=== PATIENT | female | born 1970 | race Caucasian/White ===

== ENCOUNTER → 2016-07-31 | Outpatient (CLI) | payer OTHER, MEDICAID ==
[2016-06-25 11:00] VITALS: BP 114/84
[~2016-07-31] MED LIST: APIX2.5T PO; CEFP200T PO; CONTRAST GIVEN MC PRN; DIAZ5TAB PO; ESTR0.5T PO; HYDR12.53 PO; IBUP200T43 PO; IOHEXOL 300 MG/ML 75 ML VIAL IV ONE; LEVO150T5 PO; LEVO25TA4 PO; LORA0.5T96 PO; ONDA4TAB7 PO; OXYB5TAB7 PO; OXYC-323 PO; OXYC1TAB7 PO; PROM12.553 RC; TRAM-29 PO
--- NOTE | 2016-07-31 14:14 | RAD ---
CT of the head with and without contrast, 07/31/2016: History: Headaches, breast cancer Multidetector imaging was performed prior to and following an IV bolus injection of iodinated contrast material. The ventricles are within normal limits in size. There is no shift of the midline structures. There is no evidence of acute intracranial hemorrhage or mass effect. The postcontrast scans show no areas of abnormal enhancement. IMPRESSION: No significant intracranial abnormality is detected.
== END | disposition home or self-care (01) ==
LOC: CT 08:05
PROVIDERS: ATTEND Surgery
DX: C50.919 Malignant neoplasm of unspecified site of unspecified female breast (principal); R51 Headache; Z90.10 Acquired absence of unspecified breast and nipple
CPT/HCPCS: 70470; Q9967

== ENCOUNTER → 2016-10-27 | Outpatient (CLI) | payer OTHER, MEDICAID ==
[2016-06-25 11:00] VITALS: BP 114/84
[~2016-10-27] MED LIST changes: -CONTRAST GIVEN MC PRN; -IOHEXOL 300 MG/ML 75 ML VIAL IV ONE
== END | disposition home or self-care (01) ==
LOC: LAB 09:42
PROVIDERS: ATTEND Nurse Practitioner Family
DX: R21 Rash and other nonspecific skin eruption (principal)
CPT/HCPCS: 36415; 85610

== ENCOUNTER → 2017-02-08 | Outpatient (CLI) | payer OTHER, MEDICAID ==
[2016-06-25 11:00] VITALS: BP 114/84
[~2017-02-08] MED LIST changes: -TRAM-29 PO; +TRAM-48 PO
[2017-02-08 09:09] LABS: HEMATOCRIT 41.3 % (36.0-47.0); HEMOGLOBIN 14.4 g/dL (12.0-15.5); RED BLOOD COUNT 4.95 x10^6/uL (3.50-5.40); RED CELL DISTRIBUTION WIDTH 14.4 % (11.5-14.5); WHITE BLOOD COUNT 6.4 x10^3/uL (4.0-11.0)
[2017-02-08 09:26] LABS: ALBUMIN 3.8 g/dL (3.4-5.0); ALBUMIN/GLOBULIN RATIO 1.1 (1.0-1.7); CALCIUM 8.5 mg/dL (8.5-10.1); CHOLESTEROL/HDL RATIO 3.7; CREATININE 0.8 mg/dL (0.6-1.0); GFR 77.9; TOTAL BILIRUBIN 0.4 mg/dL (0.2-1.0); TOTAL PROTEIN 7.4 g/dL (6.4-8.2)
[2017-02-08 09:36] LABS: FREE T4 1.37 ng/dL (0.76-1.46)
== END | disposition home or self-care (01) ==
LOC: LAB 08:42
PROVIDERS: ATTEND Nurse Practitioner Family
DX: Z13.228 Encounter for screening for other metabolic disorders (principal); E89.0 Postprocedural hypothyroidism
CPT/HCPCS: 36415; 80053; 80061; 84439; 84443; 85027

== ENCOUNTER → 2017-07-07 | Outpatient (CLI) | payer OTHER, MEDICAID ==
[2017-07-07 10:34] LABS: ALBUMIN 3.9 g/dL (3.4-5.0); ALBUMIN/GLOBULIN RATIO 1.1 (1.0-1.7); ALK PHOS 112 U/L (46-116); ALT (SGPT) 41 U/L (14-59); ANION GAP 8 (6-14); AST (SGOT) 20 U/L (15-37); BLOOD UREA NITROGEN 14 mg/dL (7-20); BUN/CREATININE RATIO 20 (6-20); CALCIUM 8.6 mg/dL (8.5-10.1); CARBON DIOXIDE 30 mmol/L (21-32); CHLORIDE 104 mmol/L (98-107); CREATININE 0.7 mg/dL (0.6-1.0); GFR 90.5; GLUCOSE 107 mg/dL (70-99); POTASSIUM 4.1 mmol/L (3.5-5.1); SODIUM 142 mmol/L (136-145); TOTAL BILIRUBIN 0.5 mg/dL (0.2-1.0); TOTAL PROTEIN 7.6 g/dL (6.4-8.2)
[2017-07-07 10:44] LABS: FREE T4 1.38 ng/dL (0.76-1.46)
[2017-07-07 10:44] LABS: THYROID STIM HORMONE (TSH) 0.102 uIU/mL (0.358-3.74)
[2017-07-08 04:19] LABS: HEMOGLOBIN A1C 5.6 % (4.8-5.6)
== END | disposition home or self-care (01) ==
LOC: LAB 10:00
DX: E89.0 Postprocedural hypothyroidism (principal); R73.09 Other abnormal glucose
CPT/HCPCS: 36415; 80053; 83036; 84439; 84443

== ENCOUNTER → 2017-08-12 | Day surgery (SDC) | payer OTHER, MEDICAID ==
[~2017-08-12] MED LIST changes: -APIX2.5T PO; -CEFP200T PO; -DIAZ5TAB PO; -ESTR0.5T PO; -HYDR12.53 PO; +HYDROmorphone 2 MG/ML VIAL IV; -IBUP200T43 PO; -LEVO150T5 PO; -LEVO25TA4 PO; +LIDOCAINE 1% PF 2 ML VIAL. ID; +LIDOCAINE 2% PF Vial for OR 5 ML VIAL.; -LORA0.5T96 PO; +MORPHINE SULFATE 2 MG/ML DISP.SYRIN. IV; -ONDA4TAB7 PO; +ONDANSETRON PF 4 MG/2 ML VIAL. IV; -OXYB5TAB7 PO; -OXYC-323 PO; -OXYC1TAB7 PO; +PROCHLORPERAZINE 10 MG/2 ML VIAL. IV; -PROM12.553 RC; +PROPOFOL 20 ML IV; -TRAM-48 PO; +fentaNYL PF VIAL 100 MCG/2 ML VIAL IV
[2017-08-12] MEDS: IV RINGERS,LACTATED 1000ML 1,000 ML IV ×2 (07:39)
== END | disposition home or self-care (01) ==
LOC: ENDOS 07:16
DX: Z12.11 Encounter for screening for malignant neoplasm of colon (principal); K64.0 First degree hemorrhoids; E66.9 Obesity, unspecified; E03.9 Hypothyroidism, unspecified; F41.9 Anxiety disorder, unspecified; Z88.6 Allergy status to analgesic agent; Z90.49 Acquired absence of other specified parts of digestive tract; Z87.01 Personal history of pneumonia (recurrent); Z98.51 Tubal ligation status; Z90.710 Acquired absence of both cervix and uterus; Z88.8 Allergy status to other drugs, medicaments and biological substances
CPT/HCPCS: 45378; J2704

== ENCOUNTER → 2017-09-01 | Outpatient (CLI) | payer OTHER, MEDICAID ==
[2017-09-01 09:48] LABS: ADD MAN DIFF? NO
[2017-09-01 09:58] LABS: BASO # 0.1 x10^3/uL (0.0-0.2); BASO % 1 % (0-3); EOS # 0.2 x10^3/uL (0.0-0.7); EOS % 3 % (0-3); HEMATOCRIT 42.8 % (36.0-47.0); HEMOGLOBIN 14.3 g/dL (12.0-15.5); LYMPH # 2.9 x10^3/uL (1.0-4.8); LYMPH % 39 % (24-48); MEAN CORPUSCULAR HEMOGLOBIN 29 pg (25-35); MEAN CORPUSCULAR HGB CONC 33 g/dL (31-37); MEAN CORPUSCULAR VOLUME 87 fL (79-100); MONO # 0.5 x10^3/uL (0.0-1.1); MONO % 7 % (0-9); NEUT # 3.7 x10^3uL (1.8-7.7); NEUT % 50 % (31-73); PLATELET COUNT 244 x10^3/uL (140-400); RED BLOOD COUNT 4.94 x10^6/uL (3.50-5.40); RED CELL DISTRIBUTION WIDTH 14.1 % (11.5-14.5); WHITE BLOOD COUNT 7.3 x10^3/uL (4.0-11.0)
[2017-09-01 10:11] LABS: ALBUMIN 3.9 g/dL (3.4-5.0); ALBUMIN/GLOBULIN RATIO 1.1 (1.0-1.7); ALK PHOS 112 U/L (46-116); ALT (SGPT) 46 U/L (14-59); ANION GAP 8 (6-14); AST (SGOT) 22 U/L (15-37); BLOOD UREA NITROGEN 13 mg/dL (7-20); BUN/CREATININE RATIO 14 (6-20); CARBON DIOXIDE 31 mmol/L (21-32); CHLORIDE 103 mmol/L (98-107); CREATININE 0.9 mg/dL (0.6-1.0); GFR 67.7; GLUCOSE 139 mg/dL (70-99); POTASSIUM 4.1 mmol/L (3.5-5.1); SODIUM 142 mmol/L (136-145); TOTAL BILIRUBIN 0.2 mg/dL (0.2-1.0); TOTAL PROTEIN 7.4 g/dL (6.4-8.2)
== END | disposition home or self-care (01) ==
LOC: LAB 08:27
DX: C50.412 Malignant neoplasm of upper-outer quadrant of left female breast (principal); Z17.1 Estrogen receptor negative status [ER-]
CPT/HCPCS: 36415; 80053; 85025; 86300

== ENCOUNTER → 2017-12-07 | Outpatient (CLI) | payer OTHER, MEDICAID ==
[2017-12-07 11:27] LABS: ADD MAN DIFF? NO
[2017-12-07 11:33] LABS: BASO # 0.1 x10^3/uL (0.0-0.2); BASO % 1 % (0-3); EOS # 0.2 x10^3/uL (0.0-0.7); EOS % 3 % (0-3); HEMATOCRIT 42.3 % (36.0-47.0); HEMOGLOBIN 14.7 g/dL (12.0-15.5); LYMPH # 1.8 x10^3/uL (1.0-4.8); LYMPH % 33 % (24-48); MEAN CORPUSCULAR HEMOGLOBIN 30 pg (25-35); MEAN CORPUSCULAR HGB CONC 35 g/dL (31-37); MEAN CORPUSCULAR VOLUME 87 fL (79-100); MONO # 0.4 x10^3/uL (0.0-1.1); MONO % 8 % (0-9); NEUT % 55 % (31-73); PLATELET COUNT 223 x10^3/uL (140-400); RED BLOOD COUNT 4.84 x10^6/uL (3.50-5.40); RED CELL DISTRIBUTION WIDTH 13.3 % (11.5-14.5); WHITE BLOOD COUNT 5.5 x10^3/uL (4.0-11.0)
[2017-12-07 11:47] LABS: ALBUMIN 4.2 g/dL (3.4-5.0); ALBUMIN/GLOBULIN RATIO 1.3 (1.0-1.7); ALK PHOS 106 U/L (46-116); ALT (SGPT) 55 U/L (14-59); ANION GAP 9 (6-14); AST (SGOT) 25 U/L (15-37); BLOOD UREA NITROGEN 12 mg/dL (7-20); BUN/CREATININE RATIO 15 (6-20); CARBON DIOXIDE 28 mmol/L (21-32); CHLORIDE 104 mmol/L (98-107); CREATININE 0.8 mg/dL (0.6-1.0); GFR 77.6; GLUCOSE 118 mg/dL (70-99); POTASSIUM 3.8 mmol/L (3.5-5.1); SODIUM 141 mmol/L (136-145); TOTAL BILIRUBIN 0.4 mg/dL (0.2-1.0); TOTAL PROTEIN 7.5 g/dL (6.4-8.2)
[2017-12-08 09:23] LABS: CA 27.29 12.8 U/mL (0.0-38.6)
== END | disposition home or self-care (01) ==
LOC: LAB 09:20
DX: C50.412 Malignant neoplasm of upper-outer quadrant of left female breast (principal); Z17.1 Estrogen receptor negative status [ER-]
CPT/HCPCS: 36415; 80053; 85025; 86300

== ENCOUNTER → 2018-01-10 | Outpatient (CLI) | payer OTHER, MEDICAID ==
[2018-01-10 09:51] LABS: FREE T4 1.64 ng/dL (0.76-1.46)
== END | disposition home or self-care (01) ==
LOC: LAB 08:59
DX: E89.0 Postprocedural hypothyroidism (principal)
CPT/HCPCS: 36415; 84439; 84443

== ENCOUNTER → 2018-01-12 | Outpatient (CLI) | payer OTHER, MEDICAID | END | disposition home or self-care (01) | LOC: US 10:52 | DX: N63.10 Unspecified lump in the right breast, unspecified quadrant (principal); C50.912 Malignant neoplasm of unspecified site of left female breast | CPT/HCPCS: 76641 ==

== ENCOUNTER → 2018-02-23 | Outpatient (CLI) | payer OTHER ==
[2017-08-12 09:37] VITALS: BP 125/81
[~2018-02-23] MED LIST changes: +APIX2.5T PO; +CEFP200T PO; +DIAZ5TAB PO; +ESTR0.5T PO; +HYDR12.53 PO; -HYDROmorphone 2 MG/ML VIAL IV; +IBUP200T44 PO; +LEVO150T5 PO; +LEVO25TA4 PO; -LIDOCAINE 1% PF 2 ML VIAL. ID; -LIDOCAINE 2% PF Vial for OR 5 ML VIAL.; +LORA0.5T96 PO; -MORPHINE SULFATE 2 MG/ML DISP.SYRIN. IV; +ONDA4TAB7 PO; -ONDANSETRON PF 4 MG/2 ML VIAL. IV; +OXYB5TAB7 PO; +OXYC-323 PO; +OXYC1TAB7 PO; -PROCHLORPERAZINE 10 MG/2 ML VIAL. IV; +PROM12.553 RC; -PROPOFOL 20 ML IV; +TRAM-48 PO; -fentaNYL PF VIAL 100 MCG/2 ML VIAL IV
[2018-02-23 11:13] LABS: BASO # 0.1 x10^3/uL (0.0-0.2); BASO % 1 % (0-3); EOS # 0.2 x10^3/uL (0.0-0.7); EOS % 3 % (0-3); HEMATOCRIT 41.9 % (36.0-47.0); HEMOGLOBIN 14.5 g/dL (12.0-15.5); LYMPH # 2.5 x10^3/uL (1.0-4.8); LYMPH % 36 % (24-48); MEAN CORPUSCULAR HEMOGLOBIN 30 pg (25-35); MEAN CORPUSCULAR HGB CONC 35 g/dL (31-37); MEAN CORPUSCULAR VOLUME 87 fL (79-100); MONO # 0.5 x10^3/uL (0.0-1.1); MONO % 7 % (0-9); NEUT # 3.7 x10^3uL (1.8-7.7); NEUT % 53 % (31-73); PLATELET COUNT 264 x10^3/uL (140-400); RED BLOOD COUNT 4.82 x10^6/uL (3.50-5.40); RED CELL DISTRIBUTION WIDTH 13.8 % (11.5-14.5); WHITE BLOOD COUNT 6.9 x10^3/uL (4.0-11.0)
[2018-02-23 11:20] LABS: ALBUMIN/GLOBULIN RATIO 1.2 (1.0-1.7); CALCIUM 8.8 mg/dL (8.5-10.1); CREATININE 0.9 mg/dL (0.6-1.0); GFR 67.7; TOTAL BILIRUBIN 0.5 mg/dL (0.2-1.0); TOTAL PROTEIN 7.3 g/dL (6.4-8.2)
== END | disposition home or self-care (01) ==
LOC: LAB 09:20
PROVIDERS: ATTEND Internal Medicine Hematology & Oncology
DX: C50.412 Malignant neoplasm of upper-outer quadrant of left female breast (principal); E03.9 Hypothyroidism, unspecified; Z17.1 Estrogen receptor negative status [ER-]; Z90.49 Acquired absence of other specified parts of digestive tract
CPT/HCPCS: 36415; 80053; 85025; 86300

== ENCOUNTER → 2018-03-09 | Outpatient (CLI) | payer OTHER ==
[2017-08-12 09:37] VITALS: BP 125/81
--- NOTE | 2018-03-09 15:10 | RAD ---
Radionuclide bone scan, 03/09/2018: HISTORY: Breast cancer, back and leg pain Whole-body imaging was performed following IV injection of 26.5 mCi of technetium 99m M MDP. Comparison is made to a study from 03/30/2016. The following findings are delineated: 1. Symmetrical increased activity at multiple joints including both shoulders, elbows, hands and sternoclavicular articulations is compatible with arthritis. 2. Slightly increased activity at the right ankle is unchanged and also probably on an arthritic basis. 3. Activity of the radionuclide about the skeleton and major joints is otherwise symmetric. 4. Normal activity is present in both kidneys and the bladder. IMPRESSION: 1. Scattered arthritic findings as described above. 2. No bone scan findings to suggest osseous metastatic disease. Electronically signed by: Dameon Solitario MD (03/09/2018 3:07 PM) [facility]
== END | disposition home or self-care (01) ==
LOC: NM 08:20
PROVIDERS: ATTEND Internal Medicine Hematology & Oncology
DX: M13.89 Other specified arthritis, multiple sites (principal); E03.9 Hypothyroidism, unspecified; Z85.3 Personal history of malignant neoplasm of breast; Z87.440 Personal history of urinary (tract) infections; Z87.442 Personal history of urinary calculi; Z90.721 Acquired absence of ovaries, unilateral; Z90.49 Acquired absence of other specified parts of digestive tract; Z90.12 Acquired absence of left breast and nipple; Z88.5 Allergy status to narcotic agent; Z88.6 Allergy status to analgesic agent; Z88.8 Allergy status to other drugs, medicaments and biological substances
CPT/HCPCS: 78306; 96374; A9503

== ENCOUNTER → 2018-05-31 | Outpatient (CLI) | payer OTHER ==
[2017-08-12 09:37] VITALS: BP 125/81
[~2018-05-31] MED LIST changes: -HYDR12.53 PO; +HYDR12.575 PO; -OXYC-323 PO; +OXYC1TAB15 PO
[2018-05-31 08:28] LABS: BASO # 0.1 x10^3/uL (0.0-0.2); BASO % 1 % (0-3); EOS # 0.2 x10^3/uL (0.0-0.7); EOS % 4 % (0-3); HEMATOCRIT 40.2 % (36.0-47.0); HEMOGLOBIN 13.6 g/dL (12.0-15.5); LYMPH # 2.2 x10^3/uL (1.0-4.8); LYMPH % 32 % (24-48); MEAN CORPUSCULAR HEMOGLOBIN 30 pg (25-35); MEAN CORPUSCULAR HGB CONC 34 g/dL (31-37); MEAN CORPUSCULAR VOLUME 89 fL (79-100); MONO # 0.4 x10^3/uL (0.0-1.1); MONO % 7 % (0-9); NEUT # 3.8 x10^3uL (1.8-7.7); NEUT % 56 % (31-73); PLATELET COUNT 241 x10^3/uL (140-400); RED BLOOD COUNT 4.52 x10^6/uL (3.50-5.40); RED CELL DISTRIBUTION WIDTH 13.7 % (11.5-14.5); WHITE BLOOD COUNT 6.7 x10^3/uL (4.0-11.0)
[2018-05-31 09:04] LABS: ALBUMIN 3.8 g/dL (3.4-5.0); ALBUMIN/GLOBULIN RATIO 1.1 (1.0-1.7); CALCIUM 8.7 mg/dL (8.5-10.1); POTASSIUM 3.6 mmol/L (3.5-5.1); TOTAL BILIRUBIN 0.3 mg/dL (0.2-1.0); TOTAL PROTEIN 7.3 g/dL (6.4-8.2)
== END | disposition home or self-care (01) ==
LOC: LAB 05-30 08:32
PROVIDERS: ATTEND Internal Medicine Hematology & Oncology
DX: Z08 Encounter for follow-up examination after completed treatment for malignant neoplasm (principal); Z85.3 Personal history of malignant neoplasm of breast; Z90.12 Acquired absence of left breast and nipple
CPT/HCPCS: 36415; 80053; 85025; 86300

== ENCOUNTER 2018-06-19 11:20 | Emergency (ER) | payer OTHER ==
[~2018-06-19] VITALS: Ht 160 cm; Wt 81.6 kg
[2018-06-19] MEDS ORDERED: IV NORMAL SALINE 1000ML BAG 1,000 ML IV ONE (12:00)
[2018-06-19] MEDS ORDERED: ONDANSETRON PF 4 MG/2 ML VIAL. IV ONE (12:00)
[2018-06-19 12:09] LABS: BILIRUBIN,URINE SMALL (NEG); CLARITY,URINE CLEAR; COLOR,URINE YELLOW; NITRITE,URINE NEGATIVE (NEG); PH,URINE 5.5; PROTEIN,URINE NEGATIVE (NEG-TRACE)
[2018-06-19 12:20] LABS: BASO % 0 % (0-3); EOS # 0.2 x10^3/uL (0.0-0.7); EOS % 2 % (0-3); HEMATOCRIT 42.6 % (36.0-47.0); LYMPH # 0.8 x10^3/uL (1.0-4.8); LYMPH % 8 % (24-48); MEAN CORPUSCULAR HEMOGLOBIN 31 pg (25-35); MEAN CORPUSCULAR HGB CONC 35 g/dL (31-37); MEAN CORPUSCULAR VOLUME 89 fL (79-100); MONO # 0.5 x10^3/uL (0.0-1.1); MONO % 5 % (0-9); NEUT # 8.1 x10^3uL (1.8-7.7); NEUT % 85 % (31-73); PLATELET COUNT 243 x10^3/uL (140-400); RED BLOOD COUNT 4.82 x10^6/uL (3.50-5.40); RED CELL DISTRIBUTION WIDTH 13.8 % (11.5-14.5); WHITE BLOOD COUNT 9.5 x10^3/uL (4.0-11.0)
[2018-06-19 12:28] LABS: CALCIUM 9.4 mg/dL (8.5-10.1); CREATININE 0.9 mg/dL (0.6-1.0); GFR 67.7; POTASSIUM 3.8 mmol/L (3.5-5.1)
[2018-06-19 12:31] LABS: AMORPHOUS SEDIMENT,UR PRESENT /HPF; BACTERIA,URINE FEW /HPF (0-FEW); SQUAMOUS EPITHELIAL CELL,UR MANY /LPF
[2018-06-19 14:02] LABS: % ATYL 4 % (0-0); % BANDS 16 % (0-9); % EOS 1 % (0-5); % LYMPHS 6 % (24-48); % MONOS 2 % (0-10); % SEGS 71 % (35-66)
[2018-06-19 14:20] LABS: PLT ESTIMATE ADEQUATE (ADEQUATE)
[2018-06-19] MEDS ORDERED: PROM25SU32 RC (15:17)
--- NOTE | 2018-06-19 15:18 | PHYS DOC ---
Past Medical History Past Medical History: Cancer, Hypothyroid, Other Additional Past Medical Histor: BREAST CA Past Surgical History: Cholecystectomy, Hysterectomy, Other Additional Past Surgical Histo: Bladder sling, Thyroidectomy, LEFT MASTECTOMY Alcohol Use: None Drug Use: None Adult General Chief Complaint Chief Complaint: DIARRHEA HPI HPI Patient is a 47 year old female who presents to the emergency room with complaints of nausea, vomiting, and diarrhea that started earlier today. She denies any fever, cough, shortness of breath, wheezing, chest pain, or abdominal pain. She denies any concerns of food poisoning. Patient states that she has vomited 8 times and had about 10 episodes of watery diarrhea this morning. She states that known also in the family is sick. Review of Systems Review of Systems Constitutional: Denies fever or chills [] HENT: Denies nasal congestion or sore throat [] Respiratory: Denies cough or shortness of breath [] Cardiovascular: No additional information not addressed in HPI [] GI: Denies abdominal pain; see HPI : Denies dysuria or hematuria [] Musculoskeletal: Denies back pain or joint pain [] Integument: Denies rash or skin lesions [] Neurologic: Denies headache, focal weakness or sensory changes [] All other systems were reviewed and found to be within normal limits, except as documented in this note. Current Medications Current Medications Current Medications Medications (Trade) Dose Ordered Sig/Miguel Ángel Start Time Stop Time Status Last Admin Dose Admin Ondansetron HCl (Zofran) 4 mg 1X ONCE 06/19/18 12:00 06/19/18 12:16 DC Sodium Chloride 1,000 ml @ 1,000 mls/hr 1X ONCE 06/19/18 12:00 06/19/18 12:59 DC 06/19/18 12:17 1,000 MLS/HR Allergies Allergies Allergies Coded Allergies Type Severity Reaction Last Updated Verified codeine Adverse Reaction Intermediate vomiting 08/12/17 Yes Opioids - Morphine Analogues Adverse Reaction Mild NAUSEA AND VOMITING Yes Opioids-Meperidine and Related Adverse Reaction Mild NAUSEA AND VOMITING Yes Opioids-Methadone and Related Adverse Reaction Mild NAUSEA AND VOMITNG Yes Physical Exam Physical Exam Constitutional: Well developed, well nourished, no acute distress, non-toxic appearance, obese. [] HENT: Normocephalic, atraumatic, bilateral external ears normal, oropharynx moist, dry lips noted, no oral exudates, nose normal. [] Eyes: conjunctiva normal, no discharge. [] Neck: Normal range of motion, no tenderness, supple, no stridor. [] Cardiovascular:Heart rate regular rhythm, no murmur [] Lungs & Thorax: Bilateral breath sounds clear to auscultation [] Abdomen: Bowel sounds normal, soft, no tenderness, no masses, no pulsatile masses. [] Skin: Warm, dry, no erythema, no rash. [] Back: No tenderness, no CVA tenderness. [] Extremities: No cyanosis, no clubbing, ROM intact, no edema. [] Neurologic: Alert and oriented X 3, normal motor function, normal sensory function, no focal deficits noted. [] Psychologic: Affect normal, judgement normal, mood normal. [] Current Patient Data Vital Signs Vital Signs Date Time Temp Pulse Resp B/P (MAP) Pulse Ox O2 Delivery O2 Flow Rate FiO2 06/19/18 15:21 100 14 120/83 (95) 97 Room Air 06/19/18 11:25 97.9 97.9 Lab Values Laboratory Tests Test 06/19/18 11:45 06/19/18 12:05 Urine Collection Type Unknown Urine Color Yellow Urine Clarity Clear Urine pH 5.5 Urine Specific Jolon >=1.030 Urine Protein Negative mg/dL (NEG-TRACE) Urine Glucose (UA) Negative mg/dL (NEG) Urine Ketones (Stick) Negative mg/dL (NEG) Urine Blood Negative (NEG) Urine Nitrite Negative (NEG) Urine Bilirubin Small (NEG) Urine Urobilinogen Dipstick 1.0 mg/dL (0.2 mg/dL) Urine Leukocyte Esterase Negative (NEG) Urine RBC 1-2 /HPF (0-2) Urine WBC 1-4 /HPF (0-4) Urine Squamous Epithelial Cells Many /LPF Urine Amorphous Sediment Present /HPF Urine Bacteria Few /HPF (0-FEW) Urine Mucus Mod /LPF White Blood Count 9.5 x10^3/uL (4.0-11.0) Red Blood Count 4.82 x10^6/uL (3.50-5.40) Hemoglobin 15.0 g/dL (12.0-15.5) Hematocrit 42.6 % (36.0-47.0) Mean Corpuscular Volume 89 fL (79-100) Mean Corpuscular Hemoglobin 31 pg (25-35) Mean Corpuscular Hemoglobin Concent 35 g/dL (31-37) Red Cell Distribution Width 13.8 % (11.5-14.5) Platelet Count 243 x10^3/uL (140-400) Neutrophils (%) (Auto) 85 % (31-73) H Lymphocytes (%) (Auto) 8 % (24-48) L Monocytes (%) (Auto) 5 % (0-9) Eosinophils (%) (Auto) 2 % (0-3) Basophils (%) (Auto) 0 % (0-3) Neutrophils # (Auto) 8.1 x10^3uL (1.8-7.7) H Lymphocytes # (Auto) 0.8 x10^3/uL (1.0-4.8) L Monocytes # (Auto) 0.5 x10^3/uL (0.0-1.1) Eosinophils # (Auto) 0.2 x10^3/uL (0.0-0.7) Basophils # (Auto) 0.0 x10^3/uL (0.0-0.2) Segmented Neutrophils % 71 % (35-66) H Band Neutrophils % 16 % (0-9) H Lymphocytes % 6 % (24-48) L Atypical Lymphocytes % (Manual) 4 % (0-0) H Monocytes % 2 % (0-10) Eosinophils % 1 % (0-5) Platelet Estimate Adequate (ADEQUATE) Sodium Level 139 mmol/L (136-145) Potassium Level 3.8 mmol/L (3.5-5.1) Chloride Level 102 mmol/L (98-107) Carbon Dioxide Level 28 mmol/L (21-32) Anion Gap 9 (6-14) Blood Urea Nitrogen 19 mg/dL (7-20) Creatinine 0.9 mg/dL (0.6-1.0) Estimated GFR (Cockcroft-Gault) 67.7 Glucose Level 120 mg/dL (70-99) H Calcium Level 9.4 mg/dL (8.5-10.1) Laboratory Tests 06/19/18 12:05 Laboratory Tests 06/19/18 12:05 EKG EKG [] Radiology/Procedures Radiology/Procedures [] Course & Med Decision Making Course & Med Decision Making Pertinent Labs and Imaging studies reviewed. (See chart for details) Dx: gastroenteritis Prescription written for phenergan suppositories. PT reports feeling better after IV fluids and rest in the ER. Labs are unremarkable. [] Dragon Disclaimer Dragon Disclaimer This electronic medical record was generated, in whole or in part, using a voice recognition dictation system. Departure Departure Impression: Primary Impression: Gastroenteritis Additional Impression: Nausea & vomiting Disposition: 01 HOME, SELF-CARE Condition: STABLE Referrals: TATI MCLAUGHLIN APRN (PCP) Patient Instructions: Diet for Diarrhea, Adult, Viral Gastroenteritis, Easy-to- Read Additional Instructions: Fill prescriptions and use them as directed. Recommend clear fluids for the next 24 hours. Then you may advance to bland foods such as bananas, rice, applesauce, and dry toast. Follow-up with your primary care doctor in the next 1 -2 days. Return to the emergency room if your symptoms worsen. Scripts Promethazine HCl (Phenergan) 25 Mg Supp.rect 25 MG RC TID PRN for NAUSEA/VOMITING for 3 Days, #9 SUPP.RECT 0 Refills Prov: KRISTOPHER VILLARREAL APRN 06/19/18 Problem Qualifiers Additional Impression: Nausea & vomiting Vomiting type: unspecified Vomiting Intractability: non-intractable Qualified Codes: R11.2 - Nausea with vomiting, unspecified KRISTOPHER VILLARREAL APRN Jun 19, 2018 15:18
[2018-06-19 15:21] VITALS: BP 120/83
== END 2018-06-19 15:28 | disposition home or self-care (01) ==
LOC: ER 11:20
DX: K52.9 Noninfective gastroenteritis and colitis, unspecified (principal); E03.9 Hypothyroidism, unspecified; Z90.49 Acquired absence of other specified parts of digestive tract; Z90.710 Acquired absence of both cervix and uterus; Z88.5 Allergy status to narcotic agent; Z88.8 Allergy status to other drugs, medicaments and biological substances
CPT/HCPCS: 36415; 80048; 81001; 85007; 85025; 96360; 99283; J7030

== ENCOUNTER → 2018-07-07 | Outpatient (CLI) | payer OTHER ==
[2018-06-19 15:21] VITALS: BP 120/83
[~2018-07-07] MED LIST changes: +PROM25SU32 RC
--- NOTE | 2018-07-07 13:45 | RAD ---
Right breast ultrasound, 07/07/2018: History: Follow-up cyst A previous ultrasound study from 01/12/2018 demonstrated a small hypoechoic right breast nodule at the 9:00 location, approximately 10 cm from the nipple. Today's targeted ultrasound of the region again demonstrates this rounded nodule. It currently measures 4 x 5 x 5 mm compared to measurements of 6 x 5 x 6 mm on the previous study. The slight difference is probably on a technical basis. The nodule does not appear to have enlarged. There are low level internal echoes with a slightly thick appearing wall. No definite posterior acoustic enhancement or shadowing is seen. No new abnormality is detected. IMPRESSION: Unchanged small hypoechoic right breast nodule which may be a complicated cyst. Further sonographic surveillance beginning in 6 months is suggested to confirm stability. BI-RADS 3-probably benign findings
== END | disposition home or self-care (01) ==
LOC: US 14:44
PROVIDERS: ATTEND Internal Medicine Hematology & Oncology
DX: N63.11 Unspecified lump in the right breast, upper outer quadrant (principal)
CPT/HCPCS: 76641

== ENCOUNTER 2018-08-24 09:22 | Emergency (ER) | payer OTHER ==
[~2018-08-24] VITALS: Ht 157.5 cm; Wt 83.9 kg
[2018-08-24 09:25] VITALS: BP 119/73
--- NOTE | 2018-08-24 09:55 | RAD ---
EXAM: Left knee, 3 views. HISTORY: Fall. COMPARISON: None. FINDINGS: 3 views of the left knee are obtained. There is no fracture, dislocation or subluxation. There is no joint effusion. IMPRESSION: No acute osseous finding. Electronically signed by: Meka Posey MD (08/24/2018 9:52 AM) [id number]
--- NOTE | 2018-08-24 10:01 | PHYS DOC ---
Past Medical History Past Medical History: Cancer, Hypothyroid, Other Additional Past Medical Histor: BREAST CA Past Surgical History: Cholecystectomy, Hysterectomy, Other Additional Past Surgical Histo: Bladder sling, Thyroidectomy, LEFT MASTECTOMY Alcohol Use: None Drug Use: None Adult General Chief Complaint Chief Complaint: MECHANICAL FALL HPI HPI 48-year-old female presents with a left knee injury. 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 She was walking to her car this morning slipped fell and slid under another car and hit her left knee while she was sliding under the other car. She denies hitting her head. She denies any other injury. She states the pain is mild to moderate and worse when she walks on it.[] Review of Systems Review of Systems Constitutional: Denies fever or chills [] Eyes: Denies change in visual acuity, redness, or eye pain [] HENT: Denies nasal congestion or sore throat [] Respiratory: Denies cough or shortness of breath [] Cardiovascular: No additional information not addressed in HPI [] GI: Denies abdominal pain, nausea, vomiting, bloody stools or diarrhea [] : Denies dysuria or hematuria [] Musculoskeletal: Per history of present illness[] Integument: Denies rash or skin lesions [] Neurologic: Denies headache, focal weakness or sensory changes [] Endocrine: Denies polyuria or polydipsia [] All other systems were reviewed and found to be within normal limits, except as documented in this note. Allergies Allergies Allergies Coded Allergies Type Severity Reaction Last Updated Verified codeine Adverse Reaction Intermediate vomiting 08/12/17 Yes Opioids - Morphine Analogues Adverse Reaction Mild NAUSEA AND VOMITING Yes Opioids-Meperidine and Related Adverse Reaction Mild NAUSEA AND VOMITING Yes Opioids-Methadone and Related Adverse Reaction Mild NAUSEA AND VOMITNG Yes Physical Exam Physical Exam Constitutional: Well developed, well nourished, no acute distress, non-toxic appearance. [] HENT: Normocephalic, atraumatic, bilateral external ears normal, oropharynx moist, no oral exudates, nose normal. [] Eyes: PERRLA, EOMI, conjunctiva normal, no discharge. [] Neck: Normal range of motion, no tenderness, supple, no stridor. [] Cardiovascular:Heart rate regular rhythm, no murmur [] Lungs & Thorax: Bilateral breath sounds clear to auscultation [] Abdomen: Bowel sounds normal, soft, no tenderness, no masses, no pulsatile masses. [] Skin: Warm, dry, no erythema, no rash. [] Back: No tenderness, no CVA tenderness. [] Extremities: Left knee has a mild superficial abrasion. [] Neurologic: Alert and oriented X 3, normal motor function, normal sensory function, no focal deficits noted. [] Psychologic: Affect normal, judgement normal, mood normal. [] Current Patient Data Vital Signs Vital Signs Date Time Temp Pulse Resp B/P (MAP) Pulse Ox O2 Delivery O2 Flow Rate FiO2 08/24/18 09:25 97.9 65 16 119/73 (88) 98 Room Air 97.9 EKG EKG [] Radiology/Procedures Radiology/Procedures [] Impressions: EXAM: Left knee, 3 views. HISTORY: Fall. COMPARISON: None. FINDINGS: 3 views of the left knee are obtained. There is no fracture, dislocation or subluxation. There is no joint effusion. IMPRESSION: No acute osseous finding. Course & Med Decision Making Course & Med Decision Making Pertinent Labs and Imaging studies reviewed. (See chart for details) [] Dragon Disclaimer Dragon Disclaimer This electronic medical record was generated, in whole or in part, using a voice recognition dictation system. Departure Departure Impression: Primary Impression: Contusion of left knee Referrals: TATI MCLAUGHLIN APRN (PCP) Patient Instructions: Contusion, Knee Pain Additional Instructions: Use ice liberally throughout the day today. Take ibuprofen for pain. Return to the emergency department with any new or concerning symptoms NERISSA ORTIZ DO Aug 24, 2018 10:01
== END 2018-08-24 10:15 | disposition home or self-care (01) ==
LOC: ER 09:22
DX: S80.02XA Contusion of left knee, initial encounter (principal); E03.9 Hypothyroidism, unspecified; Z88.5 Allergy status to narcotic agent; Z88.8 Allergy status to other drugs, medicaments and biological substances; W01.198A Fall on same level from slipping, tripping and stumbling with subsequent striking against other object, initial encounter; Y93.89 Activity, other specified; Y92.89 Other specified places as the place of occurrence of the external cause; Y99.8 Other external cause status
CPT/HCPCS: 73562; 99284

== ENCOUNTER → 2018-09-02 | Outpatient (CLI) | payer OTHER ==
[2018-08-24 09:25] VITALS: BP 119/73
[2018-09-02 11:04] LABS: BASO # 0.1 x10^3/uL (0.0-0.2); BASO % 1 % (0-3); EOS # 0.2 x10^3/uL (0.0-0.7); EOS % 3 % (0-3); HEMATOCRIT 41.8 % (36.0-47.0); HEMOGLOBIN 13.9 g/dL (12.0-15.5); LYMPH # 2.9 x10^3/uL (1.0-4.8); LYMPH % 37 % (24-48); MEAN CORPUSCULAR HEMOGLOBIN 30 pg (25-35); MEAN CORPUSCULAR HGB CONC 33 g/dL (31-37); MEAN CORPUSCULAR VOLUME 89 fL (79-100); MONO # 0.6 x10^3/uL (0.0-1.1); MONO % 8 % (0-9); NEUT # 3.9 x10^3uL (1.8-7.7); NEUT % 51 % (31-73); PLATELET COUNT 241 x10^3/uL (140-400); RED BLOOD COUNT 4.69 x10^6/uL (3.50-5.40); RED CELL DISTRIBUTION WIDTH 14.8 % (11.5-14.5); WHITE BLOOD COUNT 7.7 x10^3/uL (4.0-11.0)
[2018-09-02 11:17] LABS: ALBUMIN 3.8 g/dL (3.4-5.0); CALCIUM 8.7 mg/dL (8.5-10.1); CREATININE 0.8 mg/dL (0.6-1.0); GFR 77.2; POTASSIUM 3.9 mmol/L (3.5-5.1); TOTAL BILIRUBIN 0.4 mg/dL (0.2-1.0); TOTAL PROTEIN 7.5 g/dL (6.4-8.2)
== END | disposition home or self-care (01) ==
LOC: LAB 09:16
PROVIDERS: ATTEND Internal Medicine Hematology & Oncology
DX: C50.919 Malignant neoplasm of unspecified site of unspecified female breast (principal); Z17.1 Estrogen receptor negative status [ER-]
CPT/HCPCS: 36415; 80053; 85025; 86300

== ENCOUNTER → 2018-10-19 | Outpatient (CLI) | payer OTHER ==
[2018-10-19 11:19] LABS: CHOLESTEROL/HDL RATIO 4.5
[2018-10-19 11:30] LABS: FREE T4 1.35 ng/dL (0.76-1.46); THYROID STIM HORMONE (TSH) 7.832 uIU/mL (0.358-3.74)
== END | disposition home or self-care (01) ==
LOC: LAB 09:32
PROVIDERS: ATTEND Nurse Practitioner Family
DX: E78.5 Hyperlipidemia, unspecified (principal); E89.0 Postprocedural hypothyroidism
CPT/HCPCS: 36415; 80061; 84439; 84443

== ENCOUNTER → 2018-12-27 | Outpatient (CLI) | payer OTHER ==
--- NOTE | 2018-12-27 13:44 | RAD ---
Examination: BREAST RIGHT History: Cyst follow-up Comparison/Correlation: 01/12/2018 and 07/07/2018 right breast ultrasound Findings: Ultrasound imaging of the right breast region at the 9:00 region was performed 10 cm from the nipple. There is a hypoechoic structure measuring 0.3 cm x 0.3 cm x 0.2 cm tall. It is decreased since the prior exam. No flow evident within it. The right axilla is unremarkable. Impression: BI-RADS Category 2-benign. Decrease in size of the right breast region complex cystic structure since the prior exams. Clinical correlation is recommended in determining follow up.
== END | disposition home or self-care (01) ==
LOC: US 13:48
PROVIDERS: ATTEND Internal Medicine Hematology & Oncology
DX: N60.01 Solitary cyst of right breast (principal)
CPT/HCPCS: 76641

== ENCOUNTER → 2019-01-03 | Outpatient (CLI) | payer OTHER ==
[2019-01-03 09:43] LABS: BASO # 0.1 x10^3/uL (0.0-0.2); BASO % 1 % (0-3); EOS # 0.1 x10^3/uL (0.0-0.7); EOS % 3 % (0-3); HEMATOCRIT 42.6 % (36.0-47.0); HEMOGLOBIN 14.6 g/dL (12.0-15.5); LYMPH # 1.9 x10^3/uL (1.0-4.8); LYMPH % 32 % (24-48); MEAN CORPUSCULAR HEMOGLOBIN 30 pg (25-35); MEAN CORPUSCULAR HGB CONC 34 g/dL (31-37); MEAN CORPUSCULAR VOLUME 87 fL (79-100); MONO # 0.3 x10^3/uL (0.0-1.1); MONO % 6 % (0-9); NEUT # 3.4 x10^3uL (1.8-7.7); NEUT % 58 % (31-73); PLATELET COUNT 218 x10^3/uL (140-400); RED BLOOD COUNT 4.88 x10^6/uL (3.50-5.40); RED CELL DISTRIBUTION WIDTH 13.4 % (11.5-14.5); WHITE BLOOD COUNT 5.9 x10^3/uL (4.0-11.0)
[2019-01-03 09:59] LABS: ALBUMIN 3.9 g/dL (3.4-5.0); CALCIUM 8.9 mg/dL (8.5-10.1); CREATININE 0.9 mg/dL (0.6-1.0); GFR 67.4; POTASSIUM 3.5 mmol/L (3.5-5.1); TOTAL BILIRUBIN 0.4 mg/dL (0.2-1.0)
[2019-01-03 10:11] LABS: ALBUMIN/GLOBULIN RATIO 1.1 (1.0-1.7); TOTAL PROTEIN 7.3 g/dL (6.4-8.2)
== END | disposition home or self-care (01) ==
LOC: LAB 08:42
PROVIDERS: ATTEND Internal Medicine Hematology & Oncology
DX: C50.412 Malignant neoplasm of upper-outer quadrant of left female breast (principal); Z17.1 Estrogen receptor negative status [ER-]
CPT/HCPCS: 36415; 80053; 85025; 86300

== ENCOUNTER → 2019-07-10 | Outpatient (CLI) | payer OTHER ==
[~2019-07-10] MED LIST changes: +OXYB5TAB10 PO; -OXYB5TAB7 PO
[2019-07-10 10:02] LABS: BASO # 0.1 x10^3/uL (0.0-0.2); BASO % 1 % (0-3); EOS # 0.2 x10^3/uL (0.0-0.7); EOS % 3 % (0-3); HEMOGLOBIN 14.7 g/dL (12.0-15.5); LYMPH # 2.3 x10^3/uL (1.0-4.8); LYMPH % 33 % (24-48); MEAN CORPUSCULAR HEMOGLOBIN 30 pg (25-35); MEAN CORPUSCULAR HGB CONC 34 g/dL (31-37); MEAN CORPUSCULAR VOLUME 87 fL (79-100); MONO # 0.5 x10^3/uL (0.0-1.1); MONO % 7 % (0-9); NEUT # 4.1 x10^3/uL (1.8-7.7); NEUT % 57 % (31-73); PLATELET COUNT 257 x10^3/uL (140-400); RED BLOOD COUNT 4.94 x10^6/uL (3.50-5.40); RED CELL DISTRIBUTION WIDTH 13.9 % (11.5-14.5); WHITE BLOOD COUNT 7.2 x10^3/uL (4.0-11.0)
[2019-07-10 10:16] LABS: ALBUMIN 3.9 g/dL (3.4-5.0); ALBUMIN/GLOBULIN RATIO 1.1 (1.0-1.7); CALCIUM 8.7 mg/dL (8.5-10.1); CREATININE 0.9 mg/dL (0.6-1.0); GFR 67.1; TOTAL BILIRUBIN 0.4 mg/dL (0.2-1.0); TOTAL PROTEIN 7.3 g/dL (6.4-8.2)
== END | disposition home or self-care (01) ==
LOC: LAB 09:41
PROVIDERS: ATTEND Internal Medicine Hematology & Oncology
DX: C50.412 Malignant neoplasm of upper-outer quadrant of left female breast (principal); Z17.1 Estrogen receptor negative status [ER-]
CPT/HCPCS: 36415; 80053; 85025; 86300

== ENCOUNTER 2019-08-02 13:14 | Emergency (ER) | payer OTHER ==
[~2019-08-02] VITALS: Ht 157.5 cm; Wt 83.9 kg
[2019-08-02] MEDS ORDERED: ONDANSETRON ODT 4 MG TAB.RAPDIS. PO ONE (14:45)
[2019-08-02] MEDS ORDERED: ACETAMINOPHEN 500 MG TABLET PO ONE (14:45)
[2019-08-02 15:20] LABS: INFLUENZA A PATIENT NEGATIVE (NEGATIVE); INFLUENZA B PATIENT NEGATIVE (NEGATIVE)
[2019-08-02] MEDS ORDERED: PROM25SU33 RC (15:46)
--- NOTE | 2019-08-02 15:46 | PHYS DOC ---
Past Medical History Past Medical History: Cancer, Hypothyroid, Other Additional Past Medical Histor: BREAST CA Past Surgical History: Cholecystectomy, Hysterectomy, Other Additional Past Surgical Histo: Bladder sling, Thyroidectomy, LEFT MASTECTOMY Smoking Status: Never Smoker Alcohol Use: None Drug Use: None Adult General Chief Complaint Chief Complaint: NAUSEA/VOMITING/DIARRHA HPI HPI Patient is a 49 year old female who presents to the emergency department with complaints of nausea, vomiting, diarrhea, body aches, and fatigue for the last 2 days. Patient states she has had 3 episodes of vomiting in the last 24 hours she denies any hematemesis. She denies any abdominal pain, cough, shortness of breath, fever, headache, sore throat, or rash. She currently denies any pain. Review of Systems Review of Systems All other ROS is negative unless otherwise noted in HPI. Current Medications Current Medications Current Medications Medications (Trade) Dose Ordered Sig/Miguel Ángel Start Time Stop Time Status Last Admin Dose Admin Acetaminophen (Tylenol) 1,000 mg 1X ONCE 08/02/19 14:45 08/02/19 14:46 DC Ondansetron HCl (Zofran Odt) 4 mg 1X ONCE 08/02/19 14:45 08/02/19 14:46 DC Allergies Allergies Allergies Coded Allergies Type Severity Reaction Last Updated Verified codeine Adverse Reaction Intermediate vomiting 08/12/17 Yes Opioids - Morphine Analogues Adverse Reaction Mild NAUSEA AND VOMITING 08/12/17 Yes Opioids-Meperidine and Related Adverse Reaction Mild NAUSEA AND VOMITING Yes Opioids-Methadone and Related Adverse Reaction Mild NAUSEA AND VOMITNG 08/12/17 Yes Physical Exam Physical Exam See Above Constitutional: Well developed, well nourished, no acute distress, ill ap pearance HENT: Normocephalic, atraumatic, bilateral external ears normal, bilateral TMs normal, posterior pharynx normal oropharynx moist, nose congested with erythema and edema of the nasal turbinates bilaterally Eyes: PERRLA, conjunctiva injected bilaterally, no discharge. [] Neck: Normal range of motion, no stridor. [] Cardiovascular:Heart rate regular rhythm, no murmur [] Lungs & Thorax: Bilateral breath sounds clear to auscultation, Respirations even and unlabored, no retractions, no respiratory distress Abdomen: soft, non-tender, bowel sounds active Skin: Warm, dry, no erythema, no rash. [] Back: No tenderness Extremities: No cyanosis, ROM intact Neurologic: Alert and oriented X 3, no focal deficits noted. [] Psychologic: Affect normal, judgement normal, mood normal. Current Patient Data Vital Signs Vital Signs Date Time Temp Pulse Resp B/P (MAP) Pulse Ox O2 Delivery O2 Flow Rate FiO2 08/02/19 16:23 98.4 110 18 130/74 (92) 97 Room Air 98.4 Lab Values Laboratory Tests Test 08/02/19 14:35 Influenza Type A Antigen Negative (NEGATIVE) Influenza Type B Antigen Negative (NEGATIVE) EKG EKG [] Radiology/Procedures Radiology/Procedures [] Course & Med Decision Making Course & Med Decision Making Pertinent Labs and Imaging studies reviewed. (See chart for details) Rapid influenza testing was negative. The patient was given 4 mg of by mouth Zofran and a fluid challenge in the emergency department. She tolerated fluids after the Zofran. Patient requested Phenergan suppositories for nausea at home. Prescription written for Phenergan suppositories. Encouraged clear fluids for 24 hours then advance to bland foods and as tolerated. Follow-up with primary care doctor if symptoms persist, return to the ER symptoms worsen. Patient verbalized an understanding of home care, medications, follow-up, and return to ED instructions and was in agreement with the plan of care. [] Dragon Disclaimer Dragon Disclaimer This electronic medical record was generated, in whole or in part, using a voice recognition dictation system. Departure Departure Impression: Primary Impression: Flu-like symptoms Additional Impression: Nausea & vomiting Disposition: 01 HOME, SELF-CARE Condition: STABLE Referrals: TATI MCLAUGHLIN APRN (PCP) Patient Instructions: Influenza, Adult, [id number], Nausea and Vomiting, [id number] Additional Instructions: Fill prescriptions and use them as directed. Recommend clear fluids for the next 24 hours. Then you may advance to bland foods such as bananas, rice, applesauce , and dry toast. Take Tylenol or ibuprofen as needed for pain and fever, you can also take [id number] medications as needed to help reduce her symptoms. Follow-up with her primary care doctor if symptoms persist. Return to the emergency room if your symptoms worsen. Scripts Promethazine Hcl (PROMETHAZINE HCL) 25 Mg Supp.rect 25 MG RC Q6H PRN for NAUSEA/VOMITING, #10 SUPP 0 Refills Prov: KRISTOPHER VILLARREAL APRN 08/02/19 Problem Qualifiers Additional Impression: Nausea & vomiting Vomiting type: unspecified Vomiting Intractability: non-intractable Qualified Codes: R11.2 - Nausea with vomiting, unspecified KRISTOPHER VILLARREAL APRN Aug 02, 2019 15:46
[2019-08-02 16:23] VITALS: BP 130/74
== END 2019-08-02 16:19 | disposition home or self-care (01) ==
LOC: ER 13:14
DX: R11.2 Nausea with vomiting, unspecified (principal); R53.83 Other fatigue; Z85.3 Personal history of malignant neoplasm of breast; E03.9 Hypothyroidism, unspecified; Z90.49 Acquired absence of other specified parts of digestive tract; Z90.710 Acquired absence of both cervix and uterus; Z98.890 Other specified postprocedural states; Z88.5 Allergy status to narcotic agent; Z88.6 Allergy status to analgesic agent
CPT/HCPCS: 87804; 99284

== ENCOUNTER → 2019-09-12 | Outpatient (CLI) | payer OTHER ==
[~2019-09-12] MED LIST changes: +PROM25SU33 RC
[2019-09-12 08:23] LABS: BASO # 0.1 x10^3/uL (0.0-0.2); BASO % 1 % (0-3); EOS # 0.1 x10^3/uL (0.0-0.7); EOS % 2 % (0-3); HEMOGLOBIN 14.7 g/dL (12.0-15.5); LYMPH % 31 % (24-48); MEAN CORPUSCULAR HEMOGLOBIN 30 pg (25-35); MEAN CORPUSCULAR HGB CONC 34 g/dL (31-37); MEAN CORPUSCULAR VOLUME 88 fL (79-100); MONO # 0.4 x10^3/uL (0.0-1.1); MONO % 7 % (0-9); NEUT # 3.8 x10^3/uL (1.8-7.7); NEUT % 59 % (31-73); PLATELET COUNT 274 x10^3/uL (140-400); RED BLOOD COUNT 4.89 x10^6/uL (3.50-5.40); RED CELL DISTRIBUTION WIDTH 14.3 % (11.5-14.5); WHITE BLOOD COUNT 6.4 x10^3/uL (4.0-11.0)
[2019-09-12 08:48] LABS: ALBUMIN 3.9 g/dL (3.4-5.0); ALBUMIN/GLOBULIN RATIO 1.1 (1.0-1.7); CALCIUM 8.9 mg/dL (8.5-10.1); CREATININE 0.9 mg/dL (0.6-1.0); GFR 67.1; TOTAL BILIRUBIN 0.4 mg/dL (0.2-1.0); TOTAL PROTEIN 7.4 g/dL (6.4-8.2)
[2019-09-12 08:56] LABS: FREE T4 1.53 ng/dL (0.76-1.46); THYROID STIM HORMONE (TSH) 0.658 uIU/mL (0.358-3.74)
[2019-09-16 03:08] LABS: HEMOGLOBIN A1C 5.9 % (4.8-5.6)
== END | disposition home or self-care (01) ==
LOC: LAB 06:05
PROVIDERS: ATTEND Nurse Practitioner Family
DX: R73.09 Other abnormal glucose (principal); R53.83 Other fatigue; E89.0 Postprocedural hypothyroidism; E78.5 Hyperlipidemia, unspecified
CPT/HCPCS: 36415; 80053; 80061; 82306; 82607; 82746; 83036; 83540; 83550; 84439; 84443; 85025; 85651; 86431

== ENCOUNTER → 2019-12-21 | Outpatient (CLI) | payer OTHER ==
[2019-12-21 11:21] LABS: BASO # 0.1 x10^3/uL (0.0-0.2); BASO % 1 % (0-3); EOS # 0.2 x10^3/uL (0.0-0.7); EOS % 3 % (0-3); HEMATOCRIT 42.8 % (36.0-47.0); HEMOGLOBIN 14.8 g/dL (12.0-15.5); LYMPH % 33 % (24-48); MEAN CORPUSCULAR HEMOGLOBIN 30 pg (25-35); MEAN CORPUSCULAR HGB CONC 35 g/dL (31-37); MEAN CORPUSCULAR VOLUME 88 fL (79-100); MONO # 0.4 x10^3/uL (0.0-1.1); MONO % 7 % (0-9); NEUT # 3.3 x10^3/uL (1.8-7.7); NEUT % 56 % (31-73); PLATELET COUNT 267 x10^3/uL (140-400); RED BLOOD COUNT 4.88 x10^6/uL (3.50-5.40); WHITE BLOOD COUNT 5.9 x10^3/uL (4.0-11.0)
[2019-12-21 11:39] LABS: ALBUMIN 4.1 g/dL (3.4-5.0); ALBUMIN/GLOBULIN RATIO 1.2 (1.0-1.7); CALCIUM 9.1 mg/dL (8.5-10.1); GFR 59.4; POTASSIUM 4.3 mmol/L (3.5-5.1); TOTAL BILIRUBIN 0.5 mg/dL (0.2-1.0); TOTAL PROTEIN 7.5 g/dL (6.4-8.2)
== END | disposition home or self-care (01) ==
LOC: ONCLAB 11:07
PROVIDERS: ATTEND Internal Medicine Hematology & Oncology
DX: Z85.3 Personal history of malignant neoplasm of breast (principal)
CPT/HCPCS: 36415; 80053; 82306; 83615; 85025; 86300

== ENCOUNTER → 2019-12-28 | Outpatient (CLI) | payer OTHER ==
--- NOTE | 2019-12-28 17:05 | RAD ---
Bone scan 12/28/2019 CLINICAL HISTORY: History of breast cancer. TECHNIQUE: 3 hours after the intravenous administration of 26.0 mCi of Technetium 99m MDP, whole body imaging of the axial and appendicular skeleton was performed using the gamma camera. FINDINGS: Comparison is made to radiographs of the left knee dated 08/24/2018. A focal area of increased activity is seen involving the mid/lower cervical spine consistent with degenerative change. Areas of increased activity are seen involving both shoulders, both hips, both knees and both feet and ankles consistent with areas of degenerative change. No focal area of abnormally increased activity is seen to suggest definite evidence of metastatic disease to the skeleton. IMPRESSION: There is no scintigraphic evidence of skeletal metastatic disease. Electronically signed by: Patel De La Vega MD (12/28/2019 5:03 PM) [id number]
== END | disposition home or self-care (01) ==
LOC: NM 09:04
PROVIDERS: ATTEND Internal Medicine Hematology & Oncology
DX: C50.919 Malignant neoplasm of unspecified site of unspecified female breast (principal); M16.0 Bilateral primary osteoarthritis of hip; M17.0 Bilateral primary osteoarthritis of knee; M47.812 Spondylosis without myelopathy or radiculopathy, cervical region; M19.012 Primary osteoarthritis, left shoulder; M19.011 Primary osteoarthritis, right shoulder; Z85.3 Personal history of malignant neoplasm of breast
CPT/HCPCS: 78306; A9503

== ENCOUNTER → 2020-01-04 | Outpatient (CLI) | payer OTHER ==
[2020-01-04 10:37] LABS: BASO # 0.1 x10^3/uL (0.0-0.2); BASO % 1 % (0-3); EOS # 0.1 x10^3/uL (0.0-0.7); EOS % 2 % (0-3); HEMATOCRIT 43.7 % (36.0-47.0); HEMOGLOBIN 14.9 g/dL (12.0-15.5); LYMPH # 1.8 x10^3/uL (1.0-4.8); LYMPH % 32 % (24-48); MEAN CORPUSCULAR HEMOGLOBIN 30 pg (25-35); MEAN CORPUSCULAR HGB CONC 34 g/dL (31-37); MEAN CORPUSCULAR VOLUME 88 fL (79-100); MONO # 0.4 x10^3/uL (0.0-1.1); MONO % 7 % (0-9); NEUT # 3.2 x10^3/uL (1.8-7.7); NEUT % 58 % (31-73); PLATELET COUNT 240 x10^3/uL (140-400); RED BLOOD COUNT 4.94 x10^6/uL (3.50-5.40); RED CELL DISTRIBUTION WIDTH 14.1 % (11.5-14.5); WHITE BLOOD COUNT 5.6 x10^3/uL (4.0-11.0)
[2020-01-04 10:48] LABS: CALCIUM 8.7 mg/dL (8.5-10.1); CREATININE 0.9 mg/dL (0.6-1.0); GFR 67.1; POTASSIUM 4.5 mmol/L (3.5-5.1)
[2020-01-04 10:55] LABS: ALBUMIN 3.8 g/dL (3.4-5.0); ALBUMIN/GLOBULIN RATIO 1.1 (1.0-1.7); TOTAL BILIRUBIN 0.4 mg/dL (0.2-1.0); TOTAL PROTEIN 7.3 g/dL (6.4-8.2)
== END | disposition home or self-care (01) ==
LOC: ONCLAB 09:49
PROVIDERS: ATTEND Internal Medicine Hematology & Oncology
DX: Z85.3 Personal history of malignant neoplasm of breast (principal)
CPT/HCPCS: 36415; 80053; 83615; 85025

== ENCOUNTER → 2020-01-05 | Outpatient (CLI) | payer OTHER ==
--- NOTE | 2020-01-05 10:57 | RAD ---
EXAM: Right breast ultrasound. HISTORY: Personal history of breast cancer status post bilateral mastectomies in 2016. Follow-up of a palpable nodule along the lateral aspect of the right mastectomy scar. COMPARISON: 12/27/2018, 01/12/2018. FINDINGS: Sonography of the site of palpable concern along the lateral aspect of the right mastectomy scar was performed. This reveals a 2 x 2 mm hypoechoic nodule that has decreased in size from 6 x 5 mm on the 2018 study. Adjacent hypoechoic tissue is associated with the mastectomy scar. There is no suspicious sonographic finding. IMPRESSION: 1. A 2 mm hypoechoic nodule has decreased in size since 2018. This likely reflects resolving changes of fat necrosis associated with the surgical site, and benignity is favored. Recommend ongoing clinical follow-up of palpable foci. Electronically signed by: Sallie Elder MD (01/05/2020 10:54 AM) [id number]
== END | disposition home or self-care (01) ==
LOC: US 09:58
PROVIDERS: ATTEND Internal Medicine Hematology & Oncology
DX: N63.10 Unspecified lump in the right breast, unspecified quadrant (principal); Z85.3 Personal history of malignant neoplasm of breast
CPT/HCPCS: 76641

== ENCOUNTER → 2020-07-04 | Outpatient (CLI) | payer OTHER ==
[2020-07-04 10:37] LABS: BASO % 1 % (0-3); EOS # 0.2 x10^3/uL (0.0-0.7); EOS % 3 % (0-3); HEMATOCRIT 43.8 % (36.0-47.0); HEMOGLOBIN 14.9 g/dL (12.0-15.5); LYMPH # 1.9 x10^3/uL (1.0-4.8); LYMPH % 34 % (24-48); MEAN CORPUSCULAR HEMOGLOBIN 30 pg (25-35); MEAN CORPUSCULAR HGB CONC 34 g/dL (31-37); MEAN CORPUSCULAR VOLUME 88 fL (79-100); MONO # 0.3 x10^3/uL (0.0-1.1); MONO % 6 % (0-9); NEUT # 3.1 x10^3/uL (1.8-7.7); NEUT % 56 % (31-73); PLATELET COUNT 231 x10^3/uL (140-400); RED BLOOD COUNT 4.96 x10^6/uL (3.50-5.40); RED CELL DISTRIBUTION WIDTH 13.8 % (11.5-14.5); WHITE BLOOD COUNT 5.5 x10^3/uL (4.0-11.0)
[2020-07-04 10:50] LABS: CALCIUM 9.4 mg/dL (8.5-10.1); CREATININE 0.9 mg/dL (0.6-1.0); GFR 66.8
[2020-07-04 10:56] LABS: ALBUMIN 3.9 g/dL (3.4-5.0); ALBUMIN/GLOBULIN RATIO 1.2 (1.0-1.7); TOTAL BILIRUBIN 0.6 mg/dL (0.2-1.0); TOTAL PROTEIN 7.1 g/dL (6.4-8.2)
== END ==
LOC: ONCLAB 10:24
PROVIDERS: ATTEND Internal Medicine Hematology & Oncology
DX: N63.13 Unspecified lump in the right breast, lower outer quadrant (principal); Z85.3 Personal history of malignant neoplasm of breast
CPT/HCPCS: 36415; 80053; 85025

== ENCOUNTER → 2020-10-28 | Outpatient (CLI) | payer OTHER ==
[2020-10-28 01:30] LABS: BASO # 0.1 x10^3/uL (0.0-0.2); BASO % 1 % (0-3); EOS # 0.2 x10^3/uL (0.0-0.7); EOS % 3 % (0-3); HEMATOCRIT 41.1 % (36.0-47.0); LYMPH # 2.9 x10^3/uL (1.0-4.8); LYMPH % 35 % (24-48); MEAN CORPUSCULAR HEMOGLOBIN 31 pg (25-35); MEAN CORPUSCULAR HGB CONC 34 g/dL (31-37); MEAN CORPUSCULAR VOLUME 90 fL (79-100); MONO # 0.5 x10^3/uL (0.0-1.1); MONO % 6 % (0-9); NEUT # 4.7 x10^3/uL (1.8-7.7); NEUT % 55 % (31-73); PLATELET COUNT 244 x10^3/uL (140-400); RED BLOOD COUNT 4.57 x10^6/uL (3.50-5.40); RED CELL DISTRIBUTION WIDTH 14.3 % (11.5-14.5); WHITE BLOOD COUNT 8.5 x10^3/uL (4.0-11.0)
[2020-10-28 01:46] LABS: ALBUMIN/GLOBULIN RATIO 1.3 (1.0-1.7); CALCIUM 8.6 mg/dL (8.5-10.1); GFR 59.2; POTASSIUM 3.9 mmol/L (3.5-5.1); TOTAL BILIRUBIN 0.3 mg/dL (0.2-1.0); TOTAL PROTEIN 7.2 g/dL (6.4-8.2)
[2020-10-28 01:49] LABS: CHOLESTEROL/HDL RATIO 4.1
[2020-10-29 01:12] LABS: HEMOGLOBIN A1C 6.3 % (4.8-5.6)
== END ==
LOC: LAB 00:41
PROVIDERS: ATTEND Nurse Practitioner Family
DX: R73.09 Other abnormal glucose (principal); E89.0 Postprocedural hypothyroidism; R53.83 Other fatigue; E55.9 Vitamin D deficiency, unspecified
CPT/HCPCS: 36415; 80053; 80061; 82306; 83036; 83540; 83550; 84439; 84443; 85025

== ENCOUNTER → 2020-11-20 | Outpatient (CLI) | payer OTHER ==
--- NOTE | 2020-11-20 15:24 | KCIC ---
EXAM: Neck sonogram. HISTORY: Swelling and dysphagia status post thyroidectomy. TECHNIQUE: Sonographic imaging of the neck was performed. COMPARISON: None. FINDINGS: The thyroid is surgically absent. There is a 6 x 5 x 4 mm solid-appearing hypoechoic nonvas cular nodule within the right thyroid bed, possibly due to a small lymph node or scar/granulation tis mikal. There is a larger more circumscribed and lobulated hypoechoic lesion within the left thyroid bed measuring 1.7 x 0.9 x 0.6 cm. This may also be due to a lymph node or recurrent nodule within the th yroid bed. IMPRESSION: 1.7 cm nodule within the left thyroid bed, possibly due to an abnormal lymph node or lymp h node conglomerate or residual or recurrent thyroid nodule status post thyroidectomy. There is a sma ll appearing nodule within the right thyroid bed which may also be due to a lymph node or scar/granul ation tissue. These findings may be better characterized with a contrast-enhanced CT or thyroid hormo ne laboratory testing or nuclear imaging exam. Electronically signed by: Meka Posey MD (11/20/2020 3:22 PM) [id number]
== END ==
LOC: KCIC US 14:20
PROVIDERS: ATTEND Nurse Practitioner Family
DX: E04.1 Nontoxic single thyroid nodule (principal); E03.9 Hypothyroidism, unspecified; Z90.09 Acquired absence of other part of head and neck
CPT/HCPCS: 76536

== ENCOUNTER → 2020-11-22 | Outpatient (CLI) | payer OTHER ==
[2020-11-22 09:13] LABS: BASO # 0.1 x10^3/uL (0.0-0.2); BASO % 1 % (0-3); EOS # 0.2 x10^3/uL (0.0-0.7); EOS % 3 % (0-3); HEMATOCRIT 42.8 % (36.0-47.0); HEMOGLOBIN 14.7 g/dL (12.0-15.5); LYMPH # 2.2 x10^3/uL (1.0-4.8); LYMPH % 33 % (24-48); MEAN CORPUSCULAR HEMOGLOBIN 31 pg (25-35); MEAN CORPUSCULAR HGB CONC 34 g/dL (31-37); MEAN CORPUSCULAR VOLUME 90 fL (79-100); MONO # 0.5 x10^3/uL (0.0-1.1); MONO % 7 % (0-9); NEUT # 3.7 x10^3/uL (1.8-7.7); NEUT % 56 % (31-73); PLATELET COUNT 221 x10^3/uL (140-400); RED BLOOD COUNT 4.77 x10^6/uL (3.50-5.40); RED CELL DISTRIBUTION WIDTH 13.6 % (11.5-14.5); WHITE BLOOD COUNT 6.7 x10^3/uL (4.0-11.0)
[2020-11-22 09:17] LABS: CALCIUM 8.6 mg/dL (8.5-10.1); CREATININE 1.1 mg/dL (0.6-1.0); POTASSIUM 3.3 mmol/L (3.5-5.1)
[2020-11-22 09:23] LABS: ALBUMIN/GLOBULIN RATIO 1.3 (1.0-1.7); TOTAL BILIRUBIN 0.5 mg/dL (0.2-1.0); TOTAL PROTEIN 7.2 g/dL (6.4-8.2)
== END ==
LOC: ONCLAB 08:51
PROVIDERS: ATTEND Internal Medicine Hematology & Oncology
DX: E03.9 Hypothyroidism, unspecified (principal); Z85.3 Personal history of malignant neoplasm of breast
CPT/HCPCS: 36415; 80053; 85025

== ENCOUNTER → 2020-11-27 | Outpatient (CLI) | payer OTHER ==
[~2020-11-27] MED LIST changes: +CONTRAST GIVEN. MC PRN; +IOHEXOL 350 MG/ML 100 ML VIAL. IV ONE
--- NOTE | 2020-11-27 11:22 | RAD ---
CT NECK SOFT TISSUE WITH IV CONTRAST History:Reason: COUGH, BURNING WITH EATING, H/O BREAST CA / Technique: CT imaging was performed of the neck soft tissues with intravenous contrast. Coronal and s agittal reconstructions were performed. Exposure: One or more of the following individualized dose reduction techniques were utilized for thi s examination: 1. Automated exposure control 2. Adjustment of the mA and/or kV according to patient size 3. Use of iterative reconstruction technique. Comparison: None Findings: Unremarkable appearance of the pharyngeal and laryngeal structures. Normal appearance of the bilatera l submandibular and parotid glands. Prior thyroidectomy. Soft tissue within the posterior left thyroid bed measures 1.7 x 0.4 cm. Smaller soft tissue within the right thyroid bed measures 0.7 x 0.3 cm. No pathologic lymphadenopathy. Imaged lung apices are unremarkable. Imaged paranasal sinuses and mastoid air cells are clear. Imaged orbits and intracranial contents are unremarkable. Multilevel cervical spondylosis most prominent C4-C5 and C5-C6. No high-grade canal narrowing. Multil evel neuroforaminal narrowing. Impression: 1. No acute pathology within the neck soft tissues. 2. Prior thyroidectomy with soft tissue in the thyroid beds, left greater than right. Findings may r epresent residual or recurrent thyroid tissue. Recommend correlation with history of thyroid malignan cy and follow-up nuclear medicine imaging if indicated. Electronically signed by: Jayson Gonzales DO (11/27/2020 11:19 AM) [facility]
--- NOTE | 2020-11-27 11:30 | RAD ---
CTA CHEST History: Cough. Shortness of breath. Technique: CT of the chest was performed with intravenous contrast. PE protocol. Maximum intensity pr ojection coronal and sagittal reconstructions were performed. Exposure: One or more of the following individualized dose reduction techniques were utilized for thi s examination: 1. Automated exposure control 2. Adjustment of the mA and/or kV according to patient size 3. Use of iterative reconstruction technique. Comparison: May 05, 2016 calcified right middle lobe pulmonary nodule, likely prior granulous dis ease. Findings: Chest: Postop changes mastectomies with bilateral breast implants. No pathologic lymphadenopathy. No pulmonary embolism. No aortic aneurysm or dissection. Prior thyroidectomy with soft tissue in the thyroid beds better characterized on CT neck soft tissues . No consolidation or pleural effusion. No pneumothorax. Linear bilateral opacities, likely atelectasis . Tiny 2 mm left upper lobe pulmonary nodule (series 3 image 34), unchanged compared to prior and lik hal benign given stability over time. Upper abdomen: Severe hepatic steatosis. Bones: No pathologic osseous lesions. Impression: 1. No acute thoracic pathology. 2. Severe hepatic steatosis. Electronically signed by: Jayson Gonzales DO (11/27/2020 11:28 AM) [facility]
== END ==
LOC: CT 09:51
PROVIDERS: ATTEND Internal Medicine Hematology & Oncology
DX: M47.812 Spondylosis without myelopathy or radiculopathy, cervical region (principal); R05 Cough; R06.02 Shortness of breath; E04.1 Nontoxic single thyroid nodule; K76.0 Fatty (change of) liver, not elsewhere classified
CPT/HCPCS: 70491; 71275; Q9967

== ENCOUNTER → 2021-01-02 | Day surgery (SDC) | payer OTHER ==
[~2021-01-02] VITALS: Ht 157.5 cm; Wt 90.0 kg
[~2021-01-02] MED LIST changes: -CONTRAST GIVEN. MC PRN; +DIAZEPAM10 MG PO; +DULO60CA6 PO; -IOHEXOL 350 MG/ML 100 ML VIAL. IV ONE; +IV RINGERS,LACTATED 1000ML 1,000 ML IV SCH; +LIDOCAINE 2% PF 5 ML VIAL. ONE; +PROPOFOL 10 MG/ML (20ML) VIAL. IV ONE
[2021-01-02 09:31] VITALS: BP 143/79
[2021-01-02 10:55] VITALS: BP 114/71
--- NOTE | 2021-01-06 17:07 | PATHOLOGY ---
[facility] Accession Number: [id number] . 01 Material submitted: . PART A: small bowel - SMALL BOWEL BIOPSY PART B: stomach - BIOPSY ANTRUM AND BODY. Modifiers: ANTRUM, body PART C: esophagus - BIOPSY DISTAL ESOPHAGUS. Modifiers: distal PART D: esophagus - BIOPSY MID ESOPHAGUS. Modifiers: mid . 01 Clinical history: . DYSPHAGIA EGD . 02 Diagnosis: A. Small bowel biopsies: - No diagnostic abnormalities. . B. Gastric biopsies, gastric antrum and gastric body: - Active chronic gastritis, moderate, with focally numerous Helicobacter organisms identified. . C. Esophageal biopsies, distal esophagus: - Segments of hyperplastic squamous esophageal mucosa with contiguous and separate segments of gastric mucosa showing moderate chronic inflammation. . D. Esophageal biopsies, middle esophagus: - Segments of hyperplastic squamous esophageal mucosa suggestive of reflux esophagitis. [facility] 01/06/2021 1141 Local . 02 Comment: Sections of the small bowel biopsy reveal segments of small intestine and duodenal mucosa. Where best oriented, the mucosal villi show no sprue-like changes or significant inflammatory changes. . Sections of the gastric biopsy reveal segments of gastric body and gastric antral mucosa showing congestion and focally active moderate chronic inflammation. A properly controlled immunoperoxidase stain for Helicobacter reveals numerous Helicobacter organisms associated with the gastric body mucosa. There are a few Helicobacter organisms focally present in the segment of gastric antral mucosa. . Sections of the distal esophageal biopsy reveal segments of hyperplastic squamous esophageal mucosa with contiguous and separate segments of gastric mucosa showing congestion and focally active moderate chronic inflammation. The findings are consistent with reflux changes. There is no evidence of Carlos's change, dysplasia, or malignancy. . Sections of the middle esophageal biopsy reveal segments of tangentially oriented, mildly hyperplastic squamous esophageal mucosa. There are focal chronic inflammatory cells within the squamous mucosa. The findings are suggestive of reflux esophagitis. There is no evidence of Carlos's change, dysplasia, or malignancy. (JPM/db; 01/06/2021) . Special stain performed: Immunoperoxdiase stain for Helicobacter on B1 . 02 Electronically signed: . Frankie Olmstead MD, Pathologist NPI- [id number] . 01 Gross description: . A. The specimen is received in formalin, labeled "Sport, Maribell, small bowel BX". Received are 4 segments of pale lara tissue ranging in size from 0.2 to 0.7 cm in maximum dimensions. The specimen is submitted entirely in cassette A1. . B. The specimen is received in formalin, labeled " Sport, Maribell , BX antrum and body ". Received are 3 segments of pale lara tissue ranging in size from 0.3 to 0.6 cm in maximum dimensions. The specimen is submitted entirely in cassette B1. . C. The specimen is received in formalin, labeled " Sport, Maribell , BX distal esophagus ". Received are 3 segments of pale lara tissue ranging in size from 0.3 to 0.4 cm in maximum dimensions. The specimen is submitted entirely in cassette C1. . D. The specimen is received in formalin, labeled " Sport, Maribell , BX mid esophagus ". Received are 2 segments of pale lara tissue ranging in size from 0.2 to 0.4 cm in maximum dimensions. The specimen is submitted entirely in cassette D1.([facility]; 01/03/2021) [facility] 01/03/2021 1303 Local . 02 Pathologist provided ICD-10: K29.50, K20.90, R13.10 . 02 CPT . 381466, 212054, 192783, 908807, D15167 Specimen Comment: A courtesy copy of this report has been sent to [phone], [phone] Specimen Comment: [id number] Specimen Comment: Report sent to / DR MCLAUGHLIN Performed at: 01 [facility] [address] [address], [place] [id number] MD Gilbert Jacobo MD Phone: [phone] Performed at: 02 [facility] [address] [place], [place] [id number] MD Frankie Olmstead MD Phone: [phone]
== END | disposition home or self-care (01) ==
LOC: ENDOS 08:46
PROVIDERS: ATTEND Internal Medicine Gastroenterology
DX: R13.10 Dysphagia, unspecified (principal); K21.00 Gastro-esophageal reflux disease with esophagitis, without bleeding; K29.50 Unspecified chronic gastritis without bleeding; K31.89 Other diseases of stomach and duodenum; E66.9 Obesity, unspecified; E03.9 Hypothyroidism, unspecified; F41.9 Anxiety disorder, unspecified; Z85.3 Personal history of malignant neoplasm of breast; Z90.49 Acquired absence of other specified parts of digestive tract; Z98.51 Tubal ligation status; Z98.890 Other specified postprocedural states; Z79.899 Other long term (current) drug therapy; Z88.5 Allergy status to narcotic agent; Z88.8 Allergy status to other drugs, medicaments and biological substances; Z20.822 Contact with and (suspected) exposure to COVID-19
CPT/HCPCS: 43239; 43450; 87426; J2704

== ENCOUNTER 2021-02-21 10:33 | Emergency (ER) | payer OTHER ==
[~2021-02-21] VITALS: Ht 157.5 cm; Wt 85.9 kg
[~2021-02-21 10:33] MED LIST changes: -IV RINGERS,LACTATED 1000ML 1,000 ML IV SCH; -LIDOCAINE 2% PF 5 ML VIAL. ONE; -PROPOFOL 10 MG/ML (20ML) VIAL. IV ONE
[2021-02-21] MEDS ORDERED: IV NORMAL SALINE 1000ML BAG 1,000 ML IV ONE (11:15)
[2021-02-21] MEDS ORDERED: PROMETHAZINE 25 MG SUPP.RECT. PR ONE (11:15)
[2021-02-21] MEDS ORDERED: KETOROLAC 30 MG/ML VIAL. IVP ONE (11:15)
--- NOTE | 2021-02-21 11:23 | RAD ---
EXAM: Chest, single view. HISTORY: Chest pain. COMPARISON: None. FINDINGS: A frontal view of the chest is obtained. There is no infiltrate, pleural effusion or pneumo thorax. The heart is normal in size. IMPRESSION: No acute pulmonary finding. Electronically signed by: Meka Posey MD (02/21/2021 11:21 AM) [id number]
--- NOTE | 2021-02-21 11:33 | PHYS DOC ---
Past Medical History Past Medical History: Cancer, Hypothyroid, Other Additional Past Medical Histor: BREAST CA Past Surgical History: Cholecystectomy, Hysterectomy, Other Additional Past Surgical Histo: Bladder sling, Thyroidectomy, LEFT MASTECTOMY Smoking Status: Never Smoker Alcohol Use: None Drug Use: None General Adult EDM: Chief Complaint: FLU SYMPTOM HPI: HPI: Patient is a 50 year old female who presents to the emergency department complaining of 3-day history of cough, runny nose, chest hurts to breathe, body aches, decreased taste, loss of smell. Patient reports her current pain level at a 10 out of 10, generalized body aching, denies diaphoretic episodes, states nothing makes her pain worse or better however does state when she takes deep breath her chest and back pain to become worse, denies trying any pharmacological or nonpharmacological pain medications since onset of symptoms. 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 Patient states she has started her first dose of COVID-19 virus vaccination a month ago and is due today for her second dose of Pfizer type. Patient also complains of diarrhea spells today, reporting loose stool, denies blood in her stool. Patient denies allergies to medications, reports taking Levemir for type 2 diabetes, Cymbalta, oxybutynin, and diazepam for anxiety. Patient reports a thyroidectomy in 2011, mastectomy bilateral related to cancer and 2016, cholecystectomy, hysterectomy. Patient denies any other physical complaints or physical concerns. Review of Systems: Review of Systems: 14 body systems of review of systems have been reviewed. See HPI for pertinent positives and negative responses, otherwise all other systems are negative, nonpertinent or noncontributory. Constitutional: Negative except as outlined in HPI above. Skin: Negative except as outlined in HPI above. Eyes: Negative except as outlined in HPI above. HENT: Negative except as outlined in HPI above. Respiratory: Negative except as outlined in HPI above. Cardiovascular: Negative except as outlined in HPI above. GI: Negative except as outlined in HPI above. : Negative except as outlined in HPI above. Musculoskeletal: Negative except as outlined in HPI above. Integument: Negative except as outlined in HPI above. Neurologic: Negative except as outlined in HPI above. Endocrine: Negative except as outlined in HPI above. Lymphatic: Negative except as outlined in HPI above. Psychiatric: Negative except as outlined in HPI above. Heart Score: C/O Chest Pain: No Risk Factors: Risk Factors: DM, Current or recent (<one month) smoker, HTN, HLP, family history of CAD, obesity. Risk Scores: Score 0 - 3: 2.5% MACE over next 6 weeks - Discharge Home Score 4 - 6: 20.3% MACE over next 6 weeks - Admit for Clinical Observation Score 7 - 10: 72.7% MACE over next 6 weeks - Early Invasive Strategies Current Medications: Current Medications Medications (Trade) Dose Ordered Sig/Miguel Ángel Start Time Stop Time Status Last Admin Dose Admin Ketorolac Tromethamine (Toradol 30mg Vial) 30 mg 1X ONCE 02/21/21 11:15 02/21/21 11:16 DC 02/21/21 11:21 30 MG Promethazine HCl (Phenergan Supp) 25 mg 1X ONCE 02/21/21 11:15 02/21/21 11:16 DC Sodium Chloride 1,000 ml @ 1,000 mls/hr 1X ONCE 02/21/21 11:15 02/21/21 12:14 02/21/21 11:21 1,000 MLS/HR Allergies: Allergies: Allergies Coded Allergies Type Severity Reaction Last Updated Verified codeine Adverse Reaction Intermediate vomiting 01/02/21 Yes Opioids - Morphine Analogues Adverse Reaction Mild NAUSEA AND VOMITING 01/02/21 Yes Opioids-Meperidine and Related Adverse Reaction Mild NAUSEA AND VOMITING 01/02/21 Yes Opioids-Methadone and Related Adverse Reaction Mild NAUSEA AND VOMITNG 01/02/21 Yes Physical Exam: PE: Constitutional: Well developed, well nourished, no acute distress, non-toxic appearance. 50-year-old female in no apparent distress. HENT: Normocephalic, atraumatic, bilateral external ears normal, oropharynx moist, no oral exudates, nose normal. Bilateral TMs within normal limits, no drainage from external auditory canal, bilateral turbinates boggy, scant amount of clear drainage, no postnasal drip appreciated, no deep tissue infectious process of the oropharynx appreciated, no lymphadenopathy of the head or neck appreciated. Eyes: PERRLA, EOMI, conjunctiva normal, no discharge. Neck: Normal range of motion, no tenderness, supple, no stridor. No meningismus signs, no nuchal rigidity. Cardiovascular:Heart rate regular rhythm, no murmur Lungs & Thorax: Bilateral breath sounds clear to auscultation all lung olivo, no adventitious lung sounds appreciated. Abdomen: Bowel sounds normal, soft, no tenderness, no masses, no pulsatile masses. Skin: Warm, dry, no erythema, no rash. Back: No tenderness, no CVA tenderness. Extremities: No tenderness, no cyanosis, no clubbing, ROM intact, no edema. Neurologic: Alert and oriented X 3, normal motor function, normal sensory function, no focal deficits noted. Psychologic: Affect normal, judgement normal, mood normal. Current Patient Data: Labs: Laboratory Tests Test 02/21/21 10:55 02/21/21 11:20 02/21/21 12:05 SARS-CoV-2 RNA (GREGORY) Negative SARS-CoV-2 Antigen (Rapid) Negative White Blood Count 5.8 x10^3/uL Red Blood Count 4.62 x10^6/uL Hemoglobin 14.5 g/dL Hematocrit 41.8 % Mean Corpuscular Volume 90 fL Mean Corpuscular Hemoglobin 31 pg Mean Corpuscular Hemoglobin Concent 35 g/dL Red Cell Distribution Width 14.6 % Platelet Count 205 x10^3/uL Neutrophils (%) (Auto) 57 % Lymphocytes (%) (Auto) 29 % Monocytes (%) (Auto) 9 % Eosinophils (%) (Auto) 5 % Basophils (%) (Auto) 1 % Neutrophils # (Auto) 3.3 x10^3/uL Lymphocytes # (Auto) 1.7 x10^3/uL Monocytes # (Auto) 0.5 x10^3/uL Eosinophils # (Auto) 0.3 x10^3/uL Basophils # (Auto) 0.1 x10^3/uL Sodium Level 139 mmol/L Potassium Level 3.7 mmol/L Chloride Level 102 mmol/L Carbon Dioxide Level 28 mmol/L Anion Gap 9 Blood Urea Nitrogen 8 mg/dL Creatinine 0.9 mg/dL Estimated GFR (Cockcroft-Gault) 66.8 BUN/Creatinine Ratio 9 Glucose Level 191 mg/dL Calcium Level 9.0 mg/dL Phosphorus Level 2.4 mg/dL Magnesium Level 2.0 mg/dL Total Bilirubin 0.5 mg/dL Aspartate Amino Transf (AST/SGOT) 89 U/L Alanine Aminotransferase (ALT/SGPT) 156 U/L Alkaline Phosphatase 122 U/L Creatine Kinase 121 U/L Creatine Kinase MB (Mass) 0.8 ng/mL Creatine Kinase MB Relative Index 0.7 % Troponin I Quantitative < 0.017 ng/mL Total Protein 7.6 g/dL Albumin 3.9 g/dL Albumin/Globulin Ratio 1.1 Urine Collection Type Unknown Urine Color Yellow Urine Clarity Clear Urine pH 6.0 Urine Specific [place] <=1.005 Urine Protein Negative mg/dL Urine Glucose (UA) Negative mg/dL Urine Ketones (Stick) Negative mg/dL Urine Blood Negative Urine Nitrite Negative Urine Bilirubin Negative Urine Urobilinogen Dipstick 0.2 mg/dL Urine Leukocyte Esterase Negative Urine RBC 0 /HPF Urine WBC 0 /HPF Urine Squamous Epithelial Cells Mod /LPF Urine Bacteria 0 /HPF Current Medications Medications (Trade) Dose Ordered Sig/Miguel Ángel Route PRN Reason Start Time Stop Time Status Last Admin Dose Admin Promethazine HCl (Phenergan Supp) 25 mg 1X ONCE GA 02/21/21 11:15 02/21/21 11:16 DC 02/21/21 11:30 Sodium Chloride 1,000 ml @ 1,000 mls/hr 1X ONCE IV 02/21/21 11:15 02/21/21 12:14 DC 02/21/21 11:21 Ketorolac Tromethamine (Toradol 30mg Vial) 30 mg 1X ONCE IVP 02/21/21 11:15 02/21/21 11:16 DC 02/21/21 11:21 EKG: EKG: EKG performed at 1206 by ED nursing staff shows a normal sinus rhythm without other ectopy, heart rate 82 bpm, GA interval 0.158, QTc interval 0.464, no acute STEMI, no ACS, no acute ischemia appreciated, EKG interpreted by ED attending physician Dr. Field. Radiology/Procedures: Radiology/Procedures: PATIENT: JOE MENDOZA ACCOUNT: [id number] : 1970 LOCATION: ER AGE: 50 SEX: F EXAM STATUS: REG ER ORD. PHYSICIAN: LORNE NOVOA APRN REASON: Chest pain, PUI PROCEDURE: CHEST AP ONLY EXAM: Chest, single view. HISTORY: Chest pain. COMPARISON: None. FINDINGS: A frontal view of the chest is obtained. There is no infiltrate, pleural effusion or pneumothorax. The heart is normal in size. IMPRESSION: No acute pulmonary finding. Electronically signed by: Meka Posey MD (02/21/2021 11:21 AM) [id number] Course & Med Decision Making: Course & Med Decision Making Pertinent Labs and Imaging studies reviewed. (See chart for details) 50-year-old female, triage vital signs reviewed, presents to the emergency department concerning flulike signs and symptoms. Physical examination consistent with viral syndrome illness versus acute sinusitis, will order cardiorespiratory work-up related to chest pain, COVID-19 testing. Patient checks x-ray unremarkable. Patient is COVID-19 testing negative, upon reevaluation of the patient, patient states the medications given to did help her some however still feels sinus pressure. Discussed with patient will prescribe Augmentin for sinusitis, diagnosis of acute sinusitis. Will give work excuse, strict follow-up with primary care physician for ongoing symptoms, return to ER precautions or concerns. Patient is amenable to ED discharge planning. Discussed with the patient all findings and diagnostic testing as well as the need to follow-up with their primary care provider for further evaluation and treatment or return to the ED if any new or worsening symptoms. Strict return precautions were also discussed at length, the patient voiced understanding and agreement with the discharge planning. The patient was nontoxic in appearance, in no apparent distress, and hemodynamically stable at the time of disposition. Nain Disclaimer: Nain Disclaimer: This electronic medical record was generated, in whole or in part, using a voice recognition dictation system. Departure Departure Impression: Primary Impression: Sinusitis Qualified Codes: J01.90 - Acute sinusitis, unspecified Disposition: HOME / SELF CARE / HOMELESS Condition: GOOD Referrals: TATI MCLAUGHLIN APRN (PCP) Patient Instructions: Sinusitis Additional Instructions: You were seen today in the emergency department for flulike symptoms, a cardiorespiratory work-up was performed, COVID-19 testing was obtained, your emergency department work-up is reassuring and that your EKG and cardiac work-up or within normal limits, your chest x-ray did not show any acute findings, your COVID-19 testing was negative for the COVID-19 virus, I am diagnosing you with acute sinusitis, as we discussed at length I am starting you on the antibiotic Augmentin that you will take twice a day for the next 7 days. I am also writing you a work excuse, please take this time to follow-up with your primary care physician for ongoing evaluation and management of your sinusitis illness. Please return to the emergency department for worsening symptoms or other concerns. Thank you for visiting our Emergency Department. It was a pleasure taking care of you today in the emergency department and we appreciate you trusting us with your care. If any additional problems come up don't hesitate to return to visit us. Please follow up with your primary care provider so they can plan additional care if needed and know about the problem that you had. If symptoms worsen come back to the Emergency Department. Any concerning symptoms that start such as chest pain, shortness of air, weakness or numbness on one side of the body, running high fevers or any other concerning symptoms return to the ER. EMERGENCY DEPARTMENT GENERAL DISCHARGE INSTRUCTIONS Thank you for coming to Emergency Department (ED) today and trusting us with you care. We trust that you had a positive experience in our Emergency Department. If you wish to speak to the department management, you may call the Director at [phone]. YOUR FOLLOW UP INSTRUCTIONS ARE FOLLOWS: 1. Do you have a private Doctor? If you do not have a private doctor, please ask for a resource list of physicians or clinics that may be able to assist you with follow up care. 2. The Emergency Physicain has interpreted your x-rays. The X-Ray specialist will also review them. If there is a change in the findings, you will be notified in 48 hours when at all possible. 3. A lab test or culture has been done, your results will be reviewed and you will be notified if you need a change in treatment. ADDITIONAL INSTRUCTIONS AND INFORMATION: 1. Your care today has been supervised by a physician who is specially trained in emergency care. Many problems require more than one evaluation for a complete diagnosis and treatment. We recommend that you schedule your follow up appointment as recommended to ensure complete treatment of you illness or injury. If you are unable to obtain follow up care and continue to have a problem, or if your condition worsens, we recommend that you return to the ED. 2. We are not able to safely determine your condition over the phone nor are we able to give sound medical advice over the phone. For these safety reasons, if you call for medical advice we will ask you to come to the ED for further evaluation. 3. If you have any questions regarding these discharge instructions please call the ED at [phone]. SAFETY INFORMATION: In the interest of safety, wellness, and injury prevention; we encourage you to wear your sealbelt, if you smoke; quite smoking, and we encourage family to use a protective helmet for bicycling and other sporting events that present an increased risk for head injury. IF YOUR SYMPTOMS WORSEN OR NEW SYMPTOMS DEVELOP, OR YOU HAVE CONCERNS ABOUT YOUR CONDITION; OR IF YOUR CONDITION WORSENS WHILE YOU ARE WAITING FOR YOUR FOLLOW UP APPOI NTMENT; EITHER CONTACT YOUR PRIMARY CARE DOCTOR, THE PHYSICIAN WHOSE NAME AND NUMBER YOU WERE GIVEN, OR RETURN TO THE ED IMMEDIATELY. Scripts Amoxicillin/Potassium Clav (AUGMENTIN 875-125 TABLET) 1 Each Tablet 1 TAB PO BID for sinusitis for 7 Days, #14 TAB 0 Refills Prov: LORNE NOVOA APRN 02/21/21 LORNE NOVOA APRN Feb 21, 2021 11:33
[2021-02-21 11:46] LABS: BASO # 0.1 x10^3/uL (0.0-0.2); BASO % 1 % (0-3); EOS # 0.3 x10^3/uL (0.0-0.7); EOS % 5 % (0-3); HEMATOCRIT 41.8 % (36.0-47.0); HEMOGLOBIN 14.5 g/dL (12.0-15.5); LYMPH # 1.7 x10^3/uL (1.0-4.8); LYMPH % 29 % (24-48); MEAN CORPUSCULAR HEMOGLOBIN 31 pg (25-35); MEAN CORPUSCULAR HGB CONC 35 g/dL (31-37); MEAN CORPUSCULAR VOLUME 90 fL (79-100); MONO # 0.5 x10^3/uL (0.0-1.1); MONO % 9 % (0-9); NEUT # 3.3 x10^3/uL (1.8-7.7); NEUT % 57 % (31-73); PLATELET COUNT 205 x10^3/uL (140-400); RED BLOOD COUNT 4.62 x10^6/uL (3.50-5.40); RED CELL DISTRIBUTION WIDTH 14.6 % (11.5-14.5); WHITE BLOOD COUNT 5.8 x10^3/uL (4.0-11.0)
[2021-02-21 11:49] LABS: CREATININE 0.9 mg/dL (0.6-1.0); GFR 66.8; POTASSIUM 3.7 mmol/L (3.5-5.1)
[2021-02-21 11:55] LABS: ALBUMIN 3.9 g/dL (3.4-5.0); ALBUMIN/GLOBULIN RATIO 1.1 (1.0-1.7); PHOSPHORUS 2.4 mg/dL (2.6-4.7); TOTAL BILIRUBIN 0.5 mg/dL (0.2-1.0); TOTAL PROTEIN 7.6 g/dL (6.4-8.2)
[2021-02-21 12:22] LABS: BILIRUBIN,URINE NEGATIVE (NEG); CLARITY,URINE CLEAR; COLOR,URINE YELLOW; NITRITE,URINE NEGATIVE (NEG); PROTEIN,URINE NEGATIVE (NEG-TRACE); UROBILINOGEN,URINE 0.2 mg/dL (0.2 mg/dL)
--- NOTE | 2021-02-21 12:34 | EKG ---
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
[2021-02-21 12:37] LABS: BACTERIA,URINE 0 /HPF (0-FEW); RBC,URINE 0 /HPF (0-2); WBC,URINE 0 /HPF (0-4)
[2021-02-21 13:29] VITALS: BP 139/85
[2021-02-21] MEDS ORDERED: AMOX1TAB61 PO ×2 (13:36→13:37)
--- NOTE | 2021-02-24 13:41 | NUR ---
IP> Informed pt of negative covid test. Pt verbalized understanding.
== END 2021-02-21 14:05 | disposition home or self-care (01) ==
LOC: ER 10:33
DX: J01.90 Acute sinusitis, unspecified (principal); Z20.822 Contact with and (suspected) exposure to COVID-19; E03.9 Hypothyroidism, unspecified; Z88.5 Allergy status to narcotic agent; Z88.8 Allergy status to other drugs, medicaments and biological substances
CPT/HCPCS: 36415; 71045; 80053; 81001; 82553; 83735; 84100; 84484; 85025; 87426; 93005; 96361; 96374; 99285; J1885; J7030; U0003; U0005

== ENCOUNTER → 2021-04-03 | Day surgery (SDC) | payer OTHER ==
[~2021-04-03] VITALS: Ht 157.5 cm; Wt 82.0 kg
[~2021-04-03] MED LIST changes: +AMOX1TAB61 PO; -DULO60CA6 PO; +DULO60CA7 PO; +HYDROmorphone 2 MG/ML VIAL IVP PRN; +IV RINGERS,LACTATED 1000ML 1,000 ML IV SCH; +LIDOCAINE 2% PF 5 ML VIAL. ONE; +MORPHINE SULFATE 2 MG/ML INJ. IVP PRN; +PHENYLEPHRINE in 0.9% NACL PF 1 MG/10 ML SYRINGE. IV ONE; +PROCHLORPERAZINE 10 MG/2 ML VIAL. IVP PRN; +PROPOFOL 10 MG/ML (20ML) VIAL. IV ONE; +fentaNYL PF VIAL 100 MCG/2 ML VIAL IVP PRN
[2021-04-03 08:42] VITALS: BP 133/85
[2021-04-03 10:10] VITALS: BP 97/64
--- NOTE | 2021-04-03 10:31 | PREOP HP ---
DATE OF SERVICE: 04/03/2021 REFERRING PHYSICIAN: Nu Hartley MD PRIMARY CARE PHYSICIAN: Nu Hartley MD REASON FOR PROCEDURE: Helicobacter pylori gastritis and colon cancer screening. HISTORY OF PRESENT ILLNESS: This is a 50-year-old female who presents for upper endoscopy and colonoscopy. She was recently diagnosed with Helicobacter pylori and underwent treatment. She is also having diarrhea and is due for her screening colonoscopy. PAST MEDICAL HISTORY: 1. Helicobacter pylori. 2. Breast cancer. ALLERGIES: CODEINE. FAMILY MEDICAL HISTORY: Noncontributory. MEDICATIONS: MAR reviewed. PHYSICAL EXAMINATION: VITAL SIGNS: She is afebrile and her vital signs are stable. GENERAL: She is a well-developed, well-nourished female in no apparent distress. HEENT: Oropharynx is clear. CARDIAC: S1, S2. LUNGS: Clear. ABDOMEN: Normoactive bowel sounds, soft, nontender, nondistended. EXTREMITIES: No edema. NEUROLOGIC: Awake, alert, oriented x 3. ASSESSMENT AND PLAN: She is to undergo upper endoscopy and colonoscopy for further evaluation. The risks and benefits of the procedures including bleeding, perforation, nondiagnosis and sedation were explained and she has agreed to proceed. FABIAN/UNIQUE/LILLIAN DR: Josephine TID: [id number]
--- NOTE | 2021-04-04 18:11 | PATHOLOGY ---
[facility] Accession Number: [id number] . 01 Material submitted: . PART A: small bowel - SMALL BOWEL BIOPSY PART B: stomach - ANTRUM AND BODY BIOPSY PART C: esophagus - DISTAL ESOPHAGUS BIOPSY. Modifiers: distal PART D: ileum - TERMINAL ILEUM BIOPSY PART E: colon - RIGHT COLON BIOPSY. Modifiers: right PART F: colon - LEFT COLON BIOPSY. Modifiers: left . 01 Clinical history: . GERD/SCREENING EGD/COLONOSCOPY . 02 Diagnosis: A. Small bowel biopsy: - No significant pathologic abnormalities. . B. Gastric biopsies, gastric antrum and gastric body: - Active chronic gastritis, moderate, with Helicobacter organisms identified. . C. Esophageal biopsies, distal esophagus: - Reflux esophagitis. . D. Small intestine mucosa, terminal ileum biopsy: - No significant pathologic abnormalities. . E. Colonic mucosa, right colon biopsies: - No significant pathologic abnormalities. . F. Colonic mucosa, left colon biopsies: - No significant pathologic abnormalities, with two mucosal associated lymphoid aggregates and focal surface reactive epithelial hyperplastic changes. LBQ 04/04/2021 1418 Local . 02 Comment: Sections of the small bowel biopsy reveal segments of duodenal mucosa. Where best oriented, the mucosal villi show no sprue-like changes or significant inflammatory changes. . Sections of the gastric biopsy reveal segments of gastric antral and gastric body mucosa showing congestion and moderate active chronic inflammation. A properly controlled immunoperoxidase stain for Helicobacter reveals focally prominent numbers of Helicobacter organisms. . Sections of the distal esophageal biopsy reveal segments of hyperplastic squamous esophageal mucosa with contiguous and separate segments of gastric mucosa showing mild to moderate chronic inflammation. The findings are consistent with reflux esophagitis. There is no evidence of Carlos's change, dysplasia, or malignancy. . Sections of the terminal ileum biopsy reveal segments of small intestine mucosa with focal mucosal associated lymphoid tissue. There are no sprue-like changes or significant inflammatory changes. . Sections of the right colon biopsy reveal several segments of colonic mucosa and a single segment of small intestine mucosa consistent with terminal ileum. There is no evidence of a chronic destructive colitis, lymphocytic colitis, or collagenous colitis. . Sections of the left colon biopsy reveal multiple segments of colonic mucosa containing two mucosal associated lymphoid aggregates and showing focal reactive surface epithelial changes. There is no evidence of a chronic destructive colitis, lymphocytic colitis, or collagenous colitis. (JPM/db; 04/04/2021) . Special stain performed: Immunoperoxidase stain for Helicobacter on B1 . 02 Electronically signed: . Frankie Olmstead MD, Pathologist NPI- [id number] . 01 Gross description: . A. The specimen is submitted in formalin, labeled "Sport, Maribell, small bowel biopsy". Received are 3 segments of pale lara tissue ranging in size from 0.3 to 0.4 cm in maximum dimensions. The specimen is submitted entirely in cassette A1. . B. The specimen is submitted in formalin, labeled "Sport, Maribell, antrum and body biopsy". Received are 3 segments of pale lara tissue ranging in size from 0.3 to 0.5 cm in maximum dimensions. The specimen is submitted entirely in cassette B1. . C. The specimen is submitted in formalin, labeled "Sport, Maribell, distal esophagus biopsy". Received are 3 segments of pale lara tissue ranging in size from 0.2 to 0.5 cm in maximum dimensions. The specimen is submitted entirely in cassette C1. . D. The specimen is submitted in formalin, labeled "Sport, Maribell, terminal ileum biopsy". Received are 2 segments of pale lara tissue ranging in size from 0.2 to 0.3 cm in maximum dimensions. The specimen is submitted entirely in cassette D1. . E. The specimen is submitted in formalin, labeled "Sport, Maribell, right colon biopsy". Received are 4 segments of pale lara tissue ranging in size from 0.3 to 0.7 cm in maximum dimensions. The specimen is submitted entirely in cassette E1. . F. The specimen is submitted in formalin, labeled "Sport, Maribell, left colon biopsy". Received are 4 segments of pale lara tissue ranging in size from 0.2 to 0.3 cm in maximum dimensions. The specimen is submitted entirely in cassette F1. ([facility]; 04/03/2021) NRI/NRI 04/03/2021 1939 Local . 02 Pathologist provided ICD-10: K29.50, B96.81, K21.00, Z12.11 . 02 CPT . 445130, 472124, 703783, 496227, 596361, [id number], [id number] Specimen Comment: A courtesy copy of this report has been sent to [phone], [phone] Specimen Comment: [id number] Specimen Comment: Report sent to / DR MCLAUGHLIN Performed at: 01 [facility] [address] [facility] [address], [place] [id number] MD Gilbert Jacobo MD Phone: [phone] Performed at: 02 [facility] [address] [place], [place] [id number] MD Frankie Olmstead MD Phone: [phone]
== END | disposition home or self-care (01) ==
LOC: ENDOS 08:13
PROVIDERS: ATTEND Internal Medicine Gastroenterology
DX: R19.7 Diarrhea, unspecified (principal); K64.0 First degree hemorrhoids; K21.00 Gastro-esophageal reflux disease with esophagitis, without bleeding; K29.50 Unspecified chronic gastritis without bleeding; B96.81 Helicobacter pylori [H. pylori] as the cause of diseases classified elsewhere; K31.89 Other diseases of stomach and duodenum; K63.89 Other specified diseases of intestine; E66.9 Obesity, unspecified; E03.9 Hypothyroidism, unspecified; F41.9 Anxiety disorder, unspecified; Z85.3 Personal history of malignant neoplasm of breast; Z90.710 Acquired absence of both cervix and uterus; Z98.51 Tubal ligation status; Z98.890 Other specified postprocedural states; Z82.49 Family history of ischemic heart disease and other diseases of the circulatory system; Z83.3 Family history of diabetes mellitus; Z88.8 Allergy status to other drugs, medicaments and biological substances; Z88.5 Allergy status to narcotic agent; Z80.0 Family history of malignant neoplasm of digestive organs
CPT/HCPCS: 43239; 45380; J2370; J2704

== ENCOUNTER → 2021-07-11 | Outpatient (CLI) | payer OTHER ==
[2021-04-03 10:10] VITALS: BP 97/64
[~2021-07-11] MED LIST changes: -HYDROmorphone 2 MG/ML VIAL IVP PRN; -IV RINGERS,LACTATED 1000ML 1,000 ML IV SCH; -LIDOCAINE 2% PF 5 ML VIAL. ONE; -MORPHINE SULFATE 2 MG/ML INJ. IVP PRN; -PHENYLEPHRINE in 0.9% NACL PF 1 MG/10 ML SYRINGE. IV ONE; -PROCHLORPERAZINE 10 MG/2 ML VIAL. IVP PRN; -PROPOFOL 10 MG/ML (20ML) VIAL. IV ONE; -fentaNYL PF VIAL 100 MCG/2 ML VIAL IVP PRN
--- NOTE | 2021-07-11 15:53 | RAD ---
EXAMINATION: US THYROID INDICATION: 51 years, Female, history of thyroidectomy. Follow up nodules in the thyroid bed. COMPARISON: Ultrasound dated 11/20/2020 Technique: Real-time grayscale and color Doppler imaging of the thyroid gland was performed per sahil col. FINDINGS/ IMPRESSION: Total thyroidectomy. Stable size and appearance of hypoechoic solid-appearing avascular nodules in th e thyroid bed; the left nodule measures 1.6 x 0.9 x 0.6 cm and the right nodule measures 0.3 x 0.5 x 0.4 cm. Overall findings suggesting of postsurgical scarring/granulation tissue and/or an indetermina te lymph lymph nodes. Residual/recurrent nodule considers less likely. Continued attention on short-t erm follow-up exam is recommended. Electronically signed by: Archana Henderson MD (07/11/2021 3:50 PM) [facility]
== END ==
LOC: US 14:06
PROVIDERS: ATTEND Otolaryngology
DX: E04.1 Nontoxic single thyroid nodule (principal)
CPT/HCPCS: 76536

== ENCOUNTER 2021-09-06 04:25 | Emergency (ER) | payer OTHER ==
[~2021-09-06] VITALS: Ht 157.5 cm; Wt 84.1 kg
--- NOTE | 2021-09-06 05:12 | ED.ADGEN ---
Past Medical History Past Medical History: Cancer, Hypothyroid, Other Additional Past Medical Histor: BREAST CA Past Surgical History: Cholecystectomy, Hysterectomy, Other Additional Past Surgical Histo: Bladder sling, Thyroidectomy, LEFT MASTECTOMY Smoking Status: Never Smoker Alcohol Use: None Drug Use: None General Adult EDM: Chief Complaint: NAUSEA/VOMITING/DIARRHEA HPI: HPI: Patient is a 51 year old female coming into the emergency department for numerous episodes of vomiting and diarrhea starting about 8 hours prior to arrival. Patient states her last p.o. intake was about 10 hours before that. Patient is also concerned because she had a fall 2020 4 hours ago off a wooden chair. Patient states that she hit the right side of her head against a door frame, denies loss of consciousness. Has bruising to her knees and left upper arm. Patient states she has been worked up for H. pylori by her primary care provider is taking off her antibiotics 2 months ago. Patient states she has had occasional vomiting and diarrhea since then and abdominal bloating. But states this is much worse than before. Review of Systems: Review of Systems: All other systems within normal limits except for as noted in the HPI Current Medications: Current Medications Medications (Trade) Dose Ordered Sig/Miguel Ángel Start Time Stop Time Status Last Admin Dose Admin Dicyclomine HCl (Bentyl) 20 mg 1X ONCE 09/06/21 05:30 09/06/21 05:31 DC 09/06/21 05:32 20 MG Info (CONTRAST GIVEN -- Rx MONITORING) 1 each PRN DAILY PRN 09/06/21 06:15 09/08/21 06:14 Iohexol (Omnipaque 300 Mg/ml) 60 ml 1X ONCE 09/06/21 06:30 09/06/21 06:31 DC 09/06/21 06:35 60 ML Promethazine HCl (Phenergan Supp) 25 mg 1X ONCE 09/06/21 05:30 09/06/21 05:31 DC 09/06/21 05:29 25 MG Sodium Chloride 1,000 ml @ 1,000 mls/hr 1X ONCE 09/06/21 05:30 09/06/21 06:29 DC 09/06/21 05:29 1,000 MLS/HR Allergies: Allergies: Allergies Coded Allergies Type Severity Reaction Last Updated Verified codeine Adverse Reaction Intermediate vomiting 04/03/21 Yes Opioids - Morphine Analogues Adverse Reaction Mild NAUSEA AND VOMITING 04/03/21 Yes Opioids-Meperidine and Related Adverse Reaction Mild NAUSEA AND VOMITING 04/03/21 Yes Opioids-Methadone and Related Adverse Reaction Mild NAUSEA AND VOMITNG 04/03/21 Yes Physical Exam: PE: Constitutional: Well developed, well nourished, no acute distress, non-toxic appearance. [] HENT: Normocephalic, atraumatic, bilateral external ears normal, nose normal. Bruising and superficial abrasion over right mastoid [] Eyes: PERRLA, conjunctiva normal, no discharge. [] Neck: No rigidity, supple, no stridor. [] Cardiovascular: Regular rate and rhythm, brisk cap refill [] Lungs & Thorax: Non labored symmetric respirations, no tachypnea or respiratory distress [] Abdomen: Soft, nondistended, left lower quadrant tender. Skin: Warm, dry, no erythema, no rash. [] Back: Unremarkable Extremities: No deformities, range of motion grossly intact, no lower extremity edema [] Neurologic: Alert and oriented X 3, no focal deficits noted. [] Psychologic: Affect normal, judgement normal, mood normal. [] Current Patient Data: Labs: Laboratory Tests Test 09/06/21 05:26 White Blood Count 11.0 x10^3/uL (4.0-11.0) Red Blood Count 4.84 x10^6/uL (3.50-5.40) Hemoglobin 14.8 g/dL (12.0-15.5) Hematocrit 43.5 % (36.0-47.0) Mean Corpuscular Volume 90 fL (79-100) Mean Corpuscular Hemoglobin 31 pg (25-35) Mean Corpuscular Hemoglobin Concent 34 g/dL (31-37) Red Cell Distribution Width 14.2 % (11.5-14.5) Platelet Count 224 x10^3/uL (140-400) Neutrophils (%) (Auto) 91 % (31-73) H Lymphocytes (%) (Auto) 5 % (24-48) L Monocytes (%) (Auto) 3 % (0-9) Eosinophils (%) (Auto) 1 % (0-3) Basophils (%) (Auto) 0 % (0-3) Neutrophils # (Auto) 10.0 x10^3/uL (1.8-7.7) H Lymphocytes # (Auto) 0.6 x10^3/uL (1.0-4.8) L Monocytes # (Auto) 0.4 x10^3/uL (0.0-1.1) Eosinophils # (Auto) 0.1 x10^3/uL (0.0-0.7) Basophils # (Auto) 0.0 x10^3/uL (0.0-0.2) Urine Collection Type Unknown Urine Color Yellow Urine Clarity Clear Urine pH 6.0 (<5.0-8.0) Urine Specific Novinger 1.020 (1.000-1.030) Urine Protein Trace mg/dL (NEG-TRACE) Urine Glucose (UA) 100 mg/dL (NEG) Urine Ketones (Stick) 15 mg/dL (NEG) Urine Blood Negative (NEG) Urine Nitrite Negative (NEG) Urine Bilirubin Negative (NEG) Urine Urobilinogen Dipstick 1.0 mg/dL (0.2 mg/dL) Urine Leukocyte Esterase Negative (NEG) Urine RBC 0 /HPF (0-2) Urine WBC Occ /HPF (0-4) Urine Squamous Epithelial Cells Mod /LPF Urine Bacteria 0 /HPF (0-FEW) Sodium Level 139 mmol/L (136-145) Potassium Level 3.9 mmol/L (3.5-5.1) Chloride Level 100 mmol/L (98-107) Carbon Dioxide Level 28 mmol/L (21-32) Anion Gap 11 (6-14) Blood Urea Nitrogen 16 mg/dL (7-20) Creatinine 1.1 mg/dL (0.6-1.0) H Estimated GFR (Cockcroft-Gault) 52.8 BUN/Creatinine Ratio 15 (6-20) Glucose Level 242 mg/dL (70-99) H Calcium Level 8.7 mg/dL (8.5-10.1) Phosphorus Level 2.5 mg/dL (2.6-4.7) L Magnesium Level 1.8 mg/dL (1.8-2.4) Total Bilirubin 0.9 mg/dL (0.2-1.0) Aspartate Amino Transferase (AST) 60 U/L (15-37) H Alanine Aminotransferase (ALT) 103 U/L (14-59) H Alkaline Phosphatase 90 U/L (46-116) Total Protein 8.0 g/dL (6.4-8.2) Albumin 4.1 g/dL (3.4-5.0) Albumin/Globulin Ratio 1.1 (1.0-1.7) Lipase 63 U/L (73-393) L Thyroid Stimulating Hormone (TSH) 4.219 uIU/mL (0.358-3.74) H Laboratory Tests 09/06/21 05:26 Laboratory Tests 09/06/21 05:26 Vital Signs: Vital Signs Date Time Temp Pulse Resp B/P (MAP) Pulse Ox O2 Delivery O2 Flow Rate FiO2 09/06/21 06:45 108 16 118/72 (87) 98 Room Air 09/06/21 04:33 98.1 98.1 EKG: EKG: [] Heart Score: C/O Chest Pain: No Risk Factors: Risk Factors: DM, Current or recent (<one month) smoker, HTN, HLP, family history of CAD, obesity. Risk Scores: Score 0 - 3: 2.5% MACE over next 6 weeks - Discharge Home Score 4 - 6: 20.3% MACE over next 6 weeks - Admit for Clinical Observation Score 7 - 10: 72.7% MACE over next 6 weeks - Early Invasive Strategies Radiology/Procedures: Radiology/Procedures: IMAGING REPORT Signed PATIENT: JOE MENDOZA ACCOUNT: [id number] : 1970 LOCATION: ER AGE: 51 SEX: F EXAM STATUS: REG ER ORD. PHYSICIAN: BO MITCHELL MD REASON: fall, swelling PROCEDURE: ELBOW LEFT 3V EXAMINATION: Left elbow radiograph. VIEWS: 2 COMPARISON: None INDICATION:51 years, Female, fall, swelling. FINDINGS: No acute fracture, dislocation or subluxation. No bone erosion or periosteal reaction. No soft tissue swelling or joint effusion. IMPRESSION: No acute osseous process. Electronically signed by: Lesly Henderson MD (09/06/2021 6:56 AM) [facility] DICTATED and SIGNED BY: LESLY HENDERSON MD DATE: 09/06/21 [id number] IMAGING REPORT Signed PATIENT: JOE MENDOZA ACCOUNT: [id number] : 1970 LOCATION: ER AGE: 51 SEX: F EXAM STATUS: REG ER ORD. PHYSICIAN: BO MITCHELL MD REASON: fall, right head injury PROCEDURE: CT HEAD AND CERVICAL SPINE WO EXAMINATION: CT abdomen and pelvis with IV contrast. INDICATION:51 years, Female, fall, left lower abdominal pain. TECHNIQUE: Axial CT images of the abdomen and pelvis were obtained. Coronal and sagittal reformatted performed. COMPARISON: None. Exposure: One or more of the following individualized dose reduction techniques were utilized for this examination: 1. Automated exposure control 2. Adjustment of the mA and/or kV according to patient size 3. Use of iterative reconstruction technique. FINDINGS: LOWER CHEST: Dependent subsegmental atelectasis in bibasilar lungs. ABDOMEN/PELVIS: Mild hepatomegaly with diffuse steatosis, measures 19.5 cm in length. No suspicious focal hepatic lesion. Calcified granuloma in the right hepatic dome. Cholecystectomy. No biliary ductal dilation. Spleen, pancreas, and adrenal glands are unremarkable. No hydronephrosis or nephrolithiasis in either kidney. Simple appearing 2.0 cm right renal cyst. No bowel obstruction. Normal appendix. Patent abdominal vasculatures. No lymphadenopathy. No pneumoperitoneum or ascites. Hysterectomy. Unremarkable urinary bladder. Surgical clips in the pelvis. MUSCULOSKELETAL STRUCTURES: No acute osseous process. Postsurgical changes along the anterior abdominal wall. Bilateral breast implants. IMPRESSION: 1. No acute intra-abdominal findings. 2. Diffuse hepatic steatosis. EXAMINATION: CT head and cervical spine without IV contrast. INDICATION:51 years, Female, fall, head injury. COMPARISON: None TECHNIQUE: Spiral acquisition of contiguous images from the skull base to the vertex were obtained. CT of the cervical spine was obtained using contiguous spiral imaging from the skull base to the upper thoracic level. Sagittal and coronal 2D reformatted series were provided by the technologist. Soft tissue and bone window algorithms were reviewed. Exposure: One or more of the following individualized dose reduction techniques were utilized for this examination: 1. Automated exposure control 2. Adjustment of the mA and/or kV according to patient size 3. Use of iterative reconstruction technique. FINDINGS: CT HEAD: Neither mass, midline shift, intracranial hemorrhage, acute/subacute ischemic changes, nor extraaxial fluid collections are seen. The paranasal sinuses, mastoid air cells, and middle ears are clear. The orbital contents appear within normal limits. CT CERVICAL SPINE: Anatomic alignment of the cervical spine is maintained. Neither fracture, subluxation, nor traumatic spondylolisthesis is seen. The vertebral body heights are preserved. Moderate to severe multilevel degenerative changes with disc space narrowing and osteophytes. Multilevel bilateral facet and uncovertebral arthropathy. There is no evidence of a large intraspinal hematoma. The prevertebral and paravertebral soft tissues are within normal limits. Thyroidectomy. IMPRESSION: 1. No evidence of acute intracranial process. 2. No acute traumatic injury to the cervical spine. Electronically signed by: Lesly Henderson MD (09/06/2021 6:55 AM) [facility] DICTATED and SIGNED BY: LESLY HENDERSON MD DATE: 09/06/21 [id number] Course & Med Decision Making: Course & Med Decision Making Patient pending imaging at shift change. This patient was initially seen by Dr. Mitchell. Please see her note for details. I assumed care at 0600. CT imaging and x-ray imaging was pending at the time. CT imaging and x-ray imaging are unremarkable, demonstrate no acute life-threatening or surgical process. Emergency department work-up appears to be unremarkable. I spoke with the patient. She has not vomited, nor has she had diarrhea since she arrived. She reports that she can only take Phenergan suppositories to help with nausea symptoms. These will be prescribed for dis charge. She requested a note for work for tomorrow. This is provided. I discussed home care instructions, dietary modification. Strict return precautions are given. She is comfortable with the plan for discharge home. Mayelinon Disclaimer: Nain Disclaimer: This electronic medical record was generated, in whole or in part, using a voice recognition dictation system. Departure Departure Impression: Primary Impression: Nausea vomiting and diarrhea Disposition: HOME / SELF CARE / HOMELESS Condition: STABLE Referrals: TATI MCLAUGHLIN APRN (PCP) Patient Instructions: Viral Gastroenteritis Additional Instructions: Eat a bland diet, drink plenty of clear fluids. Avoid spicy, greasy or fried foods. Make sure you stay hydrated. Use the Phenergan suppositories as needed for your nausea symptoms. Return to the ER for severe abdominal pain, uncontrolled vomiting, dehydration, vomiting blood, or for any other concerns. Please follow-up with your primary care physician. Scripts Promethazine Hcl (PROMETHAZINE HCL) 25 Mg Supp.rect 25 MG RC Q6H PRN for NAUSEA/VOMITING, #20 SUPP.RECT Prov: LAMBERT SAMSON DO 09/06/21 BO MITCHELL MD Sep 06, 2021 05:12 LAMBERT SAMSON DO Sep 06, 2021 07:15
[2021-09-06] MEDS: DICYCLOMINE 20 MG/2 ML VIAL. IM ONE ×2 (05:30→05:32)
[2021-09-06] MEDS ORDERED: IV NORMAL SALINE 1000ML BAG 1,000 ML IV ONE (05:30)
[2021-09-06] MEDS ORDERED: PROMETHAZINE 25 MG SUPP.RECT. PR ONE (05:30)
[2021-09-06 05:42] LABS: BASO % 0 % (0-3); EOS # 0.1 x10^3/uL (0.0-0.7); EOS % 1 % (0-3); HEMATOCRIT 43.5 % (36.0-47.0); HEMOGLOBIN 14.8 g/dL (12.0-15.5); LYMPH # 0.6 x10^3/uL (1.0-4.8); LYMPH % 5 % (24-48); MEAN CORPUSCULAR HEMOGLOBIN 31 pg (25-35); MEAN CORPUSCULAR HGB CONC 34 g/dL (31-37); MEAN CORPUSCULAR VOLUME 90 fL (79-100); MONO # 0.4 x10^3/uL (0.0-1.1); MONO % 3 % (0-9); NEUT % 91 % (31-73); PLATELET COUNT 224 x10^3/uL (140-400); RED BLOOD COUNT 4.84 x10^6/uL (3.50-5.40); RED CELL DISTRIBUTION WIDTH 14.2 % (11.5-14.5)
[2021-09-06 05:51] LABS: CALCIUM 8.7 mg/dL (8.5-10.1); CREATININE 1.1 mg/dL (0.6-1.0); GFR 52.8; POTASSIUM 3.9 mmol/L (3.5-5.1)
[2021-09-06 05:57] LABS: ALBUMIN 4.1 g/dL (3.4-5.0); ALBUMIN/GLOBULIN RATIO 1.1 (1.0-1.7); MAGNESIUM 1.8 mg/dL (1.8-2.4); PHOSPHORUS 2.5 mg/dL (2.6-4.7); TOTAL BILIRUBIN 0.9 mg/dL (0.2-1.0)
[2021-09-06 06:10] LABS: CLARITY,URINE CLEAR; COLOR,URINE YELLOW
[2021-09-06 06:11] LABS: BILIRUBIN,URINE NEGATIVE (NEG); NITRITE,URINE NEGATIVE (NEG); PROTEIN,URINE TRACE mg/dL (NEG-TRACE)
[2021-09-06 06:14] LABS: BACTERIA,URINE 0 /HPF (0-FEW); RBC,URINE 0 /HPF (0-2); WBC,URINE OCC /HPF (0-4)
[2021-09-06] MEDS ORDERED: CONTRAST GIVEN. MC PRN (06:15)
[2021-09-06] MEDS ORDERED: IOHEXOL 300 MG/ML 100ML VIAL. IV ONE (06:30)
--- NOTE | 2021-09-06 06:58 | RAD ---
EXAMINATION: CT abdomen and pelvis with IV contrast. INDICATION:51 years, Female, fall, left lower abdominal pain. TECHNIQUE: Axial CT images of the abdomen and pelvis were obtained. Coronal and sagittal reformatted performed. COMPARISON: None. Exposure: One or more of the following individualized dose reduction techniques were utilized for [facility] s examination: 1. Automated exposure control 2. Adjustment of the mA and/or kV according to patient size 3. Use of iterative reconstruction technique. FINDINGS: LOWER CHEST: Dependent subsegmental atelectasis in bibasilar lungs. ABDOMEN/PELVIS: Mild hepatomegaly with diffuse steatosis, measures 19.5 cm in length. No suspicious focal hepatic les ion. Calcified granuloma in the right hepatic dome. Cholecystectomy. No biliary ductal dilation. Sple en, pancreas, and adrenal glands are unremarkable. No hydronephrosis or nephrolithiasis in either kid agata. Simple appearing 2.0 cm right renal cyst. No bowel obstruction. Normal appendix. Patent abdomina l vasculatures. No lymphadenopathy. No pneumoperitoneum or ascites. Hysterectomy. Unremarkable urinar y bladder. Surgical clips in the pelvis. MUSCULOSKELETAL STRUCTURES: No acute osseous process. Postsurgical changes along the anterior abdominal wall. Bilateral breast im plants. IMPRESSION: 1. No acute intra-abdominal findings. 2. Diffuse hepatic steatosis. EXAMINATION: CT head and cervical spine without IV contrast. INDICATION:51 years, Female, fall, head injury. COMPARISON: None TECHNIQUE: Spiral acquisition of contiguous images from the skull base to the vertex were obtained. C T of the cervical spine was obtained using contiguous spiral imaging from the skull base to the upper thoracic level. Sagittal and coronal 2D reformatted series were provided by the technologist. Soft t issue and bone window algorithms were reviewed. Exposure: One or more of the following individualized dose reduction techniques were utilized for [facility] examination: 1. Automated exposure control 2. Adjustment of the mA and/or kV according to patient size 3. Use of iterative reconstruction technique. FINDINGS: CT HEAD: Neither mass, midline shift, intracranial hemorrhage, acute/subacute ischemic changes, nor extraaxial fluid collections are seen. The paranasal sinuses, mastoid air cells, and middle ears are clear. Th e orbital contents appear within normal limits. CT CERVICAL SPINE: Anatomic alignment of the cervical spine is maintained. Neither fracture, subluxation, nor traumatic spondylolisthesis is seen. The vertebral body heights are preserved. Moderate to severe multilevel de generative changes with disc space narrowing and osteophytes. Multilevel bilateral facet and uncovert ebral arthropathy. There is no evidence of a large intraspinal hematoma. The prevertebral and paraver tebral soft tissues are within normal limits. Thyroidectomy. IMPRESSION: 1. No evidence of acute intracranial process. 2. No acute traumatic injury to the cervical spine. Electronically signed by: Archana Henderson MD (09/06/2021 6:55 AM) [facility]
--- NOTE | 2021-09-06 06:58 | RAD ---
EXAMINATION: Left elbow radiograph. VIEWS: 2 COMPARISON: None INDICATION:51 years, Female, fall, swelling. FINDINGS: No acute fracture, dislocation or subluxation. No bone erosion or periosteal reaction. No soft tissue swelling or joint effusion. IMPRESSION: No acute osseous process. Electronically signed by: Archana Henderson MD (09/06/2021 6:56 AM) [facility]
[2021-09-06] MEDS ORDERED: PROM25SU33 RC (07:14)
[2021-09-06 07:41] VITALS: BP 121/89
== END 2021-09-06 07:47 | disposition home or self-care (01) ==
LOC: ER 04:25
DX: S80.02XA Contusion of left knee, initial encounter (principal); S80.01XA Contusion of right knee, initial encounter; S40.022A Contusion of left upper arm, initial encounter; S00.83XA Contusion of other part of head, initial encounter; R11.2 Nausea with vomiting, unspecified; R19.7 Diarrhea, unspecified; R51.9 Headache, unspecified; R10.32 Left lower quadrant pain; E03.9 Hypothyroidism, unspecified; Z90.49 Acquired absence of other specified parts of digestive tract; Z90.710 Acquired absence of both cervix and uterus; Z88.5 Allergy status to narcotic agent; Z88.8 Allergy status to other drugs, medicaments and biological substances; W18.39XA Other fall on same level, initial encounter; Y93.89 Activity, other specified; Y92.89 Other specified places as the place of occurrence of the external cause; Y99.8 Other external cause status
CPT/HCPCS: 36415; 70450; 72125; 73080; 74177; 80053; 81001; 83690; 83735; 84100; 84443; 85025; 96360; 96361; 96372; 99285; J0500; J7030; Q9967

== ENCOUNTER → 2021-10-28 | Outpatient (CLI) | payer OTHER ==
[2021-10-28 09:47] LABS: BASO # 0.1 x10^3/uL (0.0-0.2); BASO % 1 % (0-3); EOS # 0.2 x10^3/uL (0.0-0.7); EOS % 3 % (0-3); HEMATOCRIT 44.9 % (36.0-47.0); HEMOGLOBIN 15.1 g/dL (12.0-15.5); LYMPH # 1.7 x10^3/uL (1.0-4.8); LYMPH % 31 % (24-48); MEAN CORPUSCULAR HEMOGLOBIN 30 pg (25-35); MEAN CORPUSCULAR HGB CONC 34 g/dL (31-37); MEAN CORPUSCULAR VOLUME 90 fL (79-100); MONO # 0.3 x10^3/uL (0.0-1.1); MONO % 6 % (0-9); NEUT # 3.3 x10^3/uL (1.8-7.7); NEUT % 59 % (31-73); PLATELET COUNT 248 x10^3/uL (140-400); RED CELL DISTRIBUTION WIDTH 13.9 % (11.5-14.5); WHITE BLOOD COUNT 5.6 x10^3/uL (4.0-11.0)
[2021-10-28 10:04] LABS: ALBUMIN/GLOBULIN RATIO 1.1 (1.0-1.7); CALCIUM 8.9 mg/dL (8.5-10.1); CREATININE 0.9 mg/dL (0.6-1.0); GFR 66.5; POTASSIUM 4.2 mmol/L (3.5-5.1); TOTAL BILIRUBIN 0.5 mg/dL (0.2-1.0); TOTAL PROTEIN 7.6 g/dL (6.4-8.2)
[2021-10-28 10:05] LABS: CHOLESTEROL/HDL RATIO 4.6
[2021-10-28 10:15] LABS: FREE T4 1.04 ng/dL (0.76-1.46); THYROID STIM HORMONE (TSH) 4.533 uIU/mL (0.358-3.74)
[2021-10-28 23:10] LABS: RHEUMATOID FACTOR <10.0 IU/mL (<14.0)
[2021-10-29 19:22] LABS: ANA INTERP Negative (.)
== END ==
LOC: LAB 09:13
PROVIDERS: ATTEND Nurse Practitioner Family
DX: R53.83 Other fatigue (principal); E55.9 Vitamin D deficiency, unspecified; E89.0 Postprocedural hypothyroidism; E78.5 Hyperlipidemia, unspecified; M25.50 Pain in unspecified joint
CPT/HCPCS: 36415; 80053; 80061; 82306; 82607; 82746; 83540; 83550; 84439; 84443; 85025; 85651; 86038; 86431